=== PATIENT | female | born 1950 | race Caucasian/White ===

== ENCOUNTER 2017-08-21 20:40 | Inpatient (IN) | payer MEDICARE ==
[2017-08-21 20:30] VITALS: BP 144/84
--- NOTE | 2017-08-21 20:30 | NUR ---
PT ARRIVED ON UNIT VIA STRETCHER, PT IS ALERT AND ORIENTED, ON 2L NC WITH 98% O2 SAT. LUNGS CLEAR IN B/L UPPER LOBES, DIMINISHED IN B/L LOWER LOBES, S1S2, CM-NSR, PATENT LEFT A/C PIV..S/L...ABDOMEN IS SOFT AND ROUND WITH ACTIVE BS, ALL PPP, VSS, CALL LIGHT IN REACH
[2017-08-21 21:00] VITALS: BP 138/94
[2017-08-21 21:02] VITALS: BP 144/84; BMI 16.0
[2017-08-21 22:00] VITALS: BP 144/84; BP 153/89
--- NOTE | 2017-08-21 22:10 | NUR ---
UPDATE GIVEN TO DR. DENISE OVER PHONE, NEW ORDERS RECIEVED,
[2017-08-21 23:00] VITALS: BP 150/86
--- NOTE | 2017-08-21 23:00 | NUR ---
REASSESSMENT COMPLETE, NO CHANGES NOTED, WILL CON'T TO MONITOR
[2017-08-21 23:14] VITALS: BP 144/84
[2017-08-22] VITALS (30 sets, daily range): BP systolic 99–159; BP diastolic 60–101; BMI 16.4
--- NOTE | 2017-08-22 01:04 | NUR ---
PT RESTING AT THIS TIME, NO NEEDS NOTED, WILL CON'T TO MONITOR
--- NOTE | 2017-08-22 03:30 | NUR ---
REASSESSMENT COMPLETE, NO CHANGES NOTED, PT RESTING AT THIS TIME, DENIES ANY NEEDS OR WANTS, VSS, CALL LIGHT IN REACH
[2017-08-22 04:19] LABS: BASOPHILS 0.1 % (0-2); EOSINOPHILS 0.1 % (0-7); HEMATOCRIT 42.7 % (36.0-48.0); HEMOGLOBIN 14.2 g/dL (12-16); IMMATURE GRANULOCYTES 0.3 % (0-5); LYMPHOCYTES 19.8 % (15-50); MCH 31.4 pg (26.0-34.0); MCHC 33.3 g/dL (31.0-37.0); MCV 94.5 fL (80.0-100.0); MEAN PLATELET VOLUME 9.8 fL (7.4-10.4); MONOCYTES 7.6 % (2-11); NEUTROPHILS 72.1 % (40-80); PLATELET COUNT 268 10x3/uL (130-400); RBC 4.52 10x6/uL (4.00-5.40); RDW 13.6 % (11.5-14.5); WBC 14.6 10x3/uL (4.8-10.8)
[2017-08-22 04:43] LABS: ALBUMIN 3.3 g/dL (3.4-5.0); ALKALINE PHOSPHATASE 133 U/L (46-116); ALT (SGPT) 93 U/L (10-68); CALC OSMOLALITY 288 mosm/kg (275-300); CALCIUM 9.1 mg/dL (8.5-10.1); CARBON DIOXIDE 32.4 mmol/L (21.0-32.0); CHLORIDE - SERUM 106 mmol/L (98-107); CREATININE - SERUM 0.8 mg/dL (0.6-1.3); GLUCOSE 112 mg/dL (74-106); POTASSIUM - SERUM 4.5 mmol/L (3.5-5.1); PROTEIN - SERUM 6.9 g/dL (6.4-8.2); SODIUM 143 mmol/L (136-145); UREA NITROGEN 22 mg/dL (7-18); eGFR NON AFRICAN AMERICAN 76 mL/min (90-120)
--- NOTE | 2017-08-22 05:00 | NUR ---
PT AWAKE AT THIS TIME, DENIES ANY NEEDS OR WANTS, WILL CON'T TO MONITOR
--- NOTE | 2017-08-22 06:36 | NUR ---
CONSULT CALLED TO DR. MICHELLE, NO NEW ORDERS RECIEVED,
--- NOTE | 2017-08-22 07:00 | NUR ---
REPORT RECEIVED FROM OFF GOING NURSE. PT IN BED. A&OX4. ON O2 AT 2L VIA NC. CHEST TUBE IN LEFT SIDE OF CHEST. BLOODY DRAINAGE NOTED. CHEST TUBE BUBBLING. ABSENT LUNG SOUNDS IN THE LEFT SIDE AND CLEAR ON THE RIGHT WITH DEMINISHED RLL. IV IN LEFT AC KVO WITH DILAUDID TRUCK LOADER OVERHEAD CRANE PUMP. DENIES PAIN AT THIS TIME. NO S/SX OF DISTRESS/DISCOMFORT NOTED. CALL LIGHT IN REACH. WILL CONT POC
--- NOTE | 2017-08-22 08:40 | NUR ---
LEFT FOR CT OF CHE[place] VIA BED WITH O2 TANK.
[2017-08-22] MEDS ORDERED: BAYER CHEWABLE81 MG PO (09:43)
[2017-08-22] MEDS ORDERED: LOVASTATIN20 MG PO (09:43)
[2017-08-22] MEDS ORDERED: [UNRECOGNIZED DRUG - OTHER] PO (09:43)
[2017-08-22] MEDS ORDERED: TOPROL XL50 MG PO (09:45)
[2017-08-22] MEDS ORDERED: COLACE100 MG PO (09:46)
[2017-08-22] MEDS ORDERED: SYNTHROID75 MCG PO (09:46)
[2017-08-22] MEDS ORDERED: BENADRYL25 MG PO (09:47)
[2017-08-22] MEDS ORDERED: SPIRIVA18 MCG INH (09:48)
[2017-08-22] MEDS ORDERED: PROAIR HFA8.5 GM INH (09:48)
[2017-08-22] MEDS ORDERED: SYMBICORT 16010.2 GM INH (09:48)
[2017-08-22] MEDS ORDERED: DOXYCYCLINE HY100 M2 PO (09:49)
[2017-08-22] MEDS ORDERED: PREDNISONE20 MG PO (09:50)
--- NOTE | 2017-08-22 09:50 | NUR ---
FAMILY BROUGHT IN MEDICATION LIST. MED LIST UPDATED AND REVIEWED.
--- NOTE | 2017-08-22 10:21 | NUR ---
DR MICHELLE REVIEWED CHEST CT AND XRAY. CHEST TUBE NO IN CORRECT PLACE. DR FAIRCHILD PAGED AND NOTIFIED. PER DR FAIRCHILD, PLANS TO CORRECT PLACEMENT OF CHEST TUBE.
--- NOTE | 2017-08-22 11:59 | NUR ---
NO CHANGES FROM AM ASSESSMENT. REMAINS NPO. DENIES NEEDS. 0 S/SX OF DISTRESS/DISCOMFORT NOTED. CALL LIGHT IN REACH. WILL CONT POC
--- NOTE | 2017-08-22 14:14 | NUR ---
PREOP MEDICATION GIVEN. LEFT WITH OR STAFF FOR LEFT CHEST TUBE REPLACEMENT. PT BREATHING NORMALLY AND UNLABORED. 0 S/SX OF DISTRESS/DISCOMFORT NOTED.
--- NOTE | 2017-08-22 15:00 | NUR ---
BACK FROM SURGERY. PT ALERT AND ORIENTED. DENIES PAIN. NEW CHEST TUBE INSERTED. CHEST TUBE CONNECTIONS SECURE AND BUBBLES NOTED IN CHAMBER. SCANT AMOUNT OF BLOODY DRAINAGE NOTED. DENIES PAIN AT THIS TIME. CALL LIGHT AND BETA TESTER PUMP IN HAND WILL CONT POC
--- NOTE | 2017-08-22 17:00 | NUR ---
VSS. BREATHING NORMAL AND UNLABORED. DENIES PAIN CALL LIGHT IN REACH. WILL CONT POC
--- NOTE | 2017-08-22 18:37 | NUR ---
MD KANG FOR REGULAR DIET. FOOD AND PO FLUIDS GIVEN. NO DYSPAGIA NOTED.
--- NOTE | 2017-08-22 19:15 | NUR ---
REPORT REC'D, PATIENT CARE ASSUMED. ASSESSMENT COMPLETED PER FLOW SHEETS. PT AWAKE, ALERT AND ORIENTED X4, C/O DISCOMFORT AT INCISIION SITE. SENIOR TECHNICAL PROGRAM MANAGER PUMP IN USE PRN, SR ON CM WITH HR AT 92. LUNG SOUNDS WHEEZING TO ULB WITH DIMINISHED TO LLB, UNLABORED. LEFT CHEST, CHEST TUBE INTACT TO SUCTION WITH SCANT BLOODY DRAINAGE TO TUBE. LEFT IC PVI INTACT, DRY AND CLEAN, INFUSING IV FLUID PER ORDER. PPP. CALL LIGHT IN REACH. CONT TO MONITOR.
--- NOTE | 2017-08-22 21:00 | NUR ---
FAMILY HERE AT BEDSIDE. UPDATED AND QUESTIONS ANSWERED. CPOC
--- NOTE | 2017-08-22 23:00 | NUR ---
REASSESSMENT COMPLETED. SEE FLOW SHEETS FOR ALL FINDINGS. PT CONT TO USE [employer] RETAILER SALES CONSULTANT PUMP PRN FOR DISCOMFORT. NO ACUTE SIGNS OF DISTRESS NOTED. VSS. CALL LIGHT IN REACH. CPOC.
[2017-08-23] VITALS (14 sets, daily range): BP systolic 106–133; BP diastolic 63–89
--- NOTE | 2017-08-23 01:00 | NUR ---
ASSISTED TO BEDPAN. VOIDS WITHOUT DIFFIC. TIMBO CARE PROVIDED. PADS CHANGED. REPOSITIIONED FOR COFMORT. PILLOWS IN USE FOR SUPPORT. CALL LIGHT IN REACH. CONT TO MONITOR.
[2017-08-23 04:30] LABS: BASOPHILS 0.2 % (0-2); HEMATOCRIT 41.4 % (36.0-48.0); HEMOGLOBIN 13.4 g/dL (12-16); IMMATURE GRANULOCYTES 0.2 % (0-5); MCH 30.9 pg (26.0-34.0); MCHC 32.4 g/dL (31.0-37.0); MCV 95.6 fL (80.0-100.0); MONOCYTES 8.9 % (2-11); NEUTROPHILS 71.7 % (40-80); PLATELET COUNT 215 10x3/uL (130-400); RBC 4.33 10x6/uL (4.00-5.40); RDW 13.5 % (11.5-14.5)
[2017-08-23 04:32] LABS: WBC 10.5 10x3/uL (4.8-10.8)
[2017-08-23 04:37] LABS: CALC OSMOLALITY 284 mosm/kg (275-300); CALCIUM 8.7 mg/dL (8.5-10.1); CARBON DIOXIDE 32.9 mmol/L (21.0-32.0); CHLORIDE - SERUM 104 mmol/L (98-107); CREATININE - SERUM 0.7 mg/dL (0.6-1.3); GLUCOSE 108 mg/dL (74-106); POTASSIUM - SERUM 4.4 mmol/L (3.5-5.1); SODIUM 141 mmol/L (136-145); UREA NITROGEN 21 mg/dL (7-18); eGFR NON AFRICAN AMERICAN 89 mL/min (90-120)
--- NOTE | 2017-08-23 07:52 | NUR ---
REPORT RECEIVED FROM OFF GOING NURSE. PT ALERT AND ORIENTED X4. O2 AT 2L VIA NC. PT TAKING SHALLOW BREATHS. CLEAR RUL RML WITH AND EXPITORY WHEEZING NOTED TO RLL. ABSENT LUNG SOUNDS TO LEFT LUNG. CHEST TUBE TO LEFT SIDE OF CHEST. DRESSING C/D/I. CONTINUES SUTION AND BUBBLES NOTED. 20ML OF BLOODY DRAINAGE NOTED IN COLLECTION CHAMBER. LEFT AC IV SL. DRESSING C/D/I. NO S/SX OF INFILTRATION NOTED. DENIES PAIN. CALL LIGHT IN REACH. WILL CONT POC
--- NOTE | 2017-08-23 11:32 | NUR ---
METOPROLOL GIVEN PER MELBA BEFORE PT LEFT UNIT. DR HATCH PAGED FOR UPDATING HOME MED LIST.
--- NOTE | 2017-08-23 12:00 | NUR ---
PT RECIEVED TO ROOM FROM ICU. RR EVEN AND UNLABORED. PT ON 2L NC. CHEST TUBE DRAINING SMALL AMT OF BLOODY DRAINAGE. CHEST TUBE DRESSING CITE CDI. CHEST TUBE APPLIED TO 20MM OF SUCTION. FAMILY AT BEDSIDE. PT DENIES NEEDS AT THIS TIME, REPORTS A "LITTLE BIT" OF PAIN. PT HAS INSTRUMENT LENS GRINDER APPRENTICE PUMP WITH DILUDID.
--- NOTE | 2017-08-23 12:02 | NUR ---
REPORT CALLED INTO SUNG CHATTERJEE ON MED 2. BELONGS ALL ACCOUNTED FOR. PT LEFT VIA BED AND HANDED OFF TO MED 2
--- NOTE | 2017-08-23 18:30 | NUR ---
PT RESTING QUIETLY, RR EVEN AND UNLABORED. PT DENIES NEEDS AT THIS TIME. WILL GIVE REPORT ON PT CONDITION FOR THE DAY.
--- NOTE | 2017-08-23 19:32 | NUR ---
PT IN BED RESTING. EVEN AND UNLABORED RESPIRATIONS NOTED. WILL CONTINUE TO MONITOR.
--- NOTE | 2017-08-24 00:20 | NUR ---
PT RESTING WITH EYES CLOSED. RESP EVEN AND REGULAR. CT RESEVOIR AT BEDSIDE. CALL LIGHT WITHIN REACH.
[2017-08-24 04:00] VITALS: BP 121/60
[2017-08-24 06:25] LABS: BASOPHILS 0.1 % (0-2); EOSINOPHILS 1.3 % (0-7); HEMATOCRIT 39.5 % (36.0-48.0); IMMATURE GRANULOCYTES 0.2 % (0-5); LYMPHOCYTES 20.5 % (15-50); MCH 31.2 pg (26.0-34.0); MCHC 32.9 g/dL (31.0-37.0); MCV 94.7 fL (80.0-100.0); MEAN PLATELET VOLUME 9.7 fL (7.4-10.4); MONOCYTES 8.6 % (2-11); NEUTROPHILS 69.3 % (40-80); PLATELET COUNT 197 10x3/uL (130-400); RBC 4.17 10x6/uL (4.00-5.40); RDW 13.3 % (11.5-14.5)
[2017-08-24 06:36] LABS: CALC OSMOLALITY 272 mosm/kg (275-300); CALCIUM 8.5 mg/dL (8.5-10.1); CARBON DIOXIDE 31.7 mmol/L (21.0-32.0); CHLORIDE - SERUM 102 mmol/L (98-107); CREATININE - SERUM 0.6 mg/dL (0.6-1.3); GLUCOSE 120 mg/dL (74-106); POTASSIUM - SERUM 3.6 mmol/L (3.5-5.1); SODIUM 136 mmol/L (136-145); UREA NITROGEN 13 mg/dL (7-18); eGFR NON AFRICAN AMERICAN > 90 mL/min (90-120)
--- NOTE | 2017-08-24 07:40 | NUR ---
AM ROUNDS - PT IN BED AND APPEARS TO BE SLEEPING WITH EQUAL AND NON LABORED BREATHING. CHEST TUBE DRAINING. IV TO LEFT AC, NS AT KVO. DILAUDID BRUSH CLEARER SURVEYING INFUSING. SCD ON AT THIS TIME. YELLOW BAND ON. CALL MENDOZA IN REACH. SIDE RAILS UP X2. BED AT LOWEST POSITION. WILL CONTINEU TO MONITOR
[2017-08-24 08:10] VITALS: BP 117/63
[2017-08-24 12:32] VITALS: BP 100/55
--- NOTE | 2017-08-24 15:12 | NUR ---
PT IN BED WITH NO NEEDS AT THIS TIME. WILL CONTINUE TO MONITOR
[2017-08-24 15:39] VITALS: BP 99/48
--- NOTE | 2017-08-24 18:36 | NUR ---
NO NS BOTTLES ON THE FLOOR. CALLED HOUSE SUP TO OBTAIN BOTTLED NS. LAUREN SAID PASS THE ORDER TO THE NIGHT NURSE AND [facility] DO[facility] NOT RECIEVE THE BOTTLE OF NS FOR THE CHEST TUBE IN ABOUT 1 HRS TO CALL HER BACK. WILL CONTINUE TO [place].
--- NOTE | 2017-08-24 19:36 | NUR ---
PT IN BED. SURROUNDED BY FAMILY AT BEDSIDE. DENIES NEEDS AT THIS TIME. WILL CONTINUE TO MONITOR.
[2017-08-24 20:32] VITALS: BP 111/55
[2017-08-25 01:18] VITALS: BP 103/52
[2017-08-25 05:55] VITALS: BP 103/56
[2017-08-25 06:09] LABS: BASOPHILS 0.1 % (0-2); EOSINOPHILS 1.5 % (0-7); HEMATOCRIT 35.8 % (36.0-48.0); HEMOGLOBIN 11.8 g/dL (12-16); IMMATURE GRANULOCYTES 0.3 % (0-5); LYMPHOCYTES 22.7 % (15-50); MCH 31.1 pg (26.0-34.0); MCV 94.2 fL (80.0-100.0); MEAN PLATELET VOLUME 9.6 fL (7.4-10.4); MONOCYTES 8.2 % (2-11); NEUTROPHILS 67.2 % (40-80); PLATELET COUNT 223 10x3/uL (130-400); RDW 13.3 % (11.5-14.5); WBC 7.4 10x3/uL (4.8-10.8)
[2017-08-25 06:28] LABS: CALC OSMOLALITY 276 mosm/kg (275-300); CALCIUM 8.1 mg/dL (8.5-10.1); CARBON DIOXIDE 29.8 mmol/L (21.0-32.0); CHLORIDE - SERUM 105 mmol/L (98-107); CREATININE - SERUM 0.5 mg/dL (0.6-1.3); GLUCOSE 115 mg/dL (74-106); POTASSIUM - SERUM 3.7 mmol/L (3.5-5.1); SODIUM 138 mmol/L (136-145); UREA NITROGEN 12 mg/dL (7-18); eGFR NON AFRICAN AMERICAN > 90 mL/min (90-120)
[2017-08-25 08:05] VITALS: BP 114/75
--- NOTE | 2017-08-25 08:21 | NUR ---
PT AOX4 RESP EVEN AND NONLABORED IV TO LEFT AC PATENT AND INTACT AT THIS TIME SRX2 BED AT LOWEST SETTING CALL LIGHT WITHIN REACH WILL CONTINUE TO MONITOR
[2017-08-25 15:09] VITALS: BP 127/67
[2017-08-25 20:35] VITALS: BP 116/70
--- NOTE | 2017-08-25 23:35 | NUR ---
PT RESTING WITH EYES CLOSED. NO DISTRESS. PT SEEN EARLIER BY DR DENISE AND HE INFORMED HER THAT SHE STILL HAS A LEAK AND IF IT DOES NOT RESOLVE, THEN SHE WILL PROBABLY HAVE SURGERY SATURDAY. DR DENISE ASSESSED PT DURING HIS VISIT. LEFT SIDE CHEST TUBE IN PLACE.
[2017-08-26 00:08] VITALS: BP 104/59
--- NOTE | 2017-08-26 02:45 | NUR ---
PT ASLEEP. IVF INFUSING AT KVO/DILAUDID CHIEF PHARMACIST FOR PAIN CONTROL. CALL LIGHT IN REACH. CPOC.
--- NOTE | 2017-08-26 03:13 | NUR ---
IV ABT UP AND INFUSING. PT RESTING WITH NONLABORED RESPIRATIONS. CHEST TUBE IN PLACE TO LEFT SIDE. CPOC.
[2017-08-26 04:37] VITALS: BP 95/55
[2017-08-26 05:11] LABS: BASOPHILS 0.2 % (0-2); EOSINOPHILS 2.4 % (0-7); HEMATOCRIT 36.1 % (36.0-48.0); HEMOGLOBIN 11.8 g/dL (12-16); IMMATURE GRANULOCYTES 0.1 % (0-5); MCH 30.8 pg (26.0-34.0); MCHC 32.7 g/dL (31.0-37.0); MCV 94.3 fL (80.0-100.0); MEAN PLATELET VOLUME 9.2 fL (7.4-10.4); MONOCYTES 7.7 % (2-11); NEUTROPHILS 69.6 % (40-80); PLATELET COUNT 239 10x3/uL (130-400); RBC 3.83 10x6/uL (4.00-5.40); RDW 13.4 % (11.5-14.5); WBC 8.1 10x3/uL (4.8-10.8)
[2017-08-26 05:16] LABS: CALC OSMOLALITY 281 mosm/kg (275-300); CALCIUM 8.6 mg/dL (8.5-10.1); CARBON DIOXIDE 31.1 mmol/L (21.0-32.0); CHLORIDE - SERUM 104 mmol/L (98-107); CREATININE - SERUM 0.5 mg/dL (0.6-1.3); GLUCOSE 140 mg/dL (74-106); SODIUM 140 mmol/L (136-145); UREA NITROGEN 14 mg/dL (7-18); eGFR NON AFRICAN AMERICAN > 90 mL/min (90-120)
--- NOTE | 2017-08-26 07:45 | NUR ---
RECIEVED REPORT ON PATIENT, PATIENT IS RESTING AT THIS TIME, NAD NOTED. RESPIRATORY AT BEDSIDE GIVING BREATHING TREATMENT. PATIENT HAS A L AC IV WITH NS INFUSING AT 15ML/HR AND A DILAUDID FIRST CRUSHER. PATIENT IS SR ON MONITOR WITH A RATE OF 87. PATIENT HAS A WATER SEAL CHEST TUBE ON L SIDE. NAD NOTED AT THIS TIME. WILL CONT TO MONITOR PATIENT, BED LOW AND LOCKED. CALL LIGHT IN REACH. CPOC
[2017-08-26 08:00] VITALS: BP 108/65
--- NOTE | 2017-08-26 09:00 | NUR ---
MORNING MEDICATIONS GIVEN PER ORDER. DENIES ANY NEEDS. CPOC
[2017-08-26 12:00] VITALS: BP 111/68
--- NOTE | 2017-08-26 12:11 | NUR ---
SECOND IV STARTED IN L WRIST, 22G. IV INFUSING WITH NS AT 15ML/HR AND DILUADID JOURNEYMAN MILLWRIGHT. L AC IV SL. CPOC
--- NOTE | 2017-08-26 15:00 | NUR ---
PATIENT DILUADID OIL RAG WASHER DC. DR DENISE NOTIFIED. ORDERED NORCO 5MG 1-2TABS q4HOUR PRN PAIN. CPOC
[2017-08-26 16:00] VITALS: BP 130/78
--- NOTE | 2017-08-26 17:49 | NUR ---
PATIENT SITTING UP IN BED EATING DINNER. FAMILY AT BEDSIDE. PATIENT DENIES ANY NEEDS. STATES PAIN IS OKAY AT THIS TIME. WILL CONT TO MONITOR
--- NOTE | 2017-08-26 18:42 | NUR ---
PATIENT WATCHING TV, DENIES ANY NEEDS AT THIS TIME. CPOC
[2017-08-26 19:00] VITALS: BP 116/70
--- NOTE | 2017-08-26 19:35 | NUR ---
SHIFT ASSESSMENT COMPLETE. PT IS A&O X4 AND HAS COMPLAINTS OF ABD PAIN. SHE STATES THAT SHE HASN'T HAD A BM SINCE SATURDAY AND SHE DISCUSSED OPTIONS WITH THE DOCTOR ABOUT STOOL SOFTNERS, LAXITIVE, ETC. WILL CHECK INTO THAT DISCUSSION. NC @ 2 L/MIN, EVEN AND UNLABORED RESPIRATIONS. DIMINISHED LUNG SOUNDS THROUGHOUT ALL LOBES WELL SOME EXPIRATORY WHEEZES. S1S2 AUDIBLE, HR 100, SINUS RHYTHM VIA TELEMERTY. RADIAL AND PEDAL PULSES PALP, EQUAL, STRONG. L SIDE OF CHEST HAS CHEST TUBE DRESSING, CDI WITH NO DRAINAGE NOTED. WATER SEAL SUCTION, DARK RED BLOOD NOTED IN THE CHAMBER. REPOSITIONED FOR COMFORT. REFILLED REFRESHMENTS. NO FURTHER REQUESTS AT THIS TIME. CALL LIGHT IN REACH. BED IN LOWEST POSITION. WILL CONT WITH POC.
--- NOTE | 2017-08-26 23:30 | NUR ---
PT RESTING PEACEFULLY ON HER BACK WITH NO SIGNS OF ACUTE DISTRESS NOTED. WILL CONT WITH POC.
[2017-08-27] VITALS: BP 107/47
--- NOTE | 2017-08-27 02:51 | NUR ---
CHANGED IV TUBING, SWAB CAPPED, LABELED. NO REQUESTS AT THIS TIME. WILL CONT WITH POC.
[2017-08-27 04:32] VITALS: BP 100/52
--- NOTE | 2017-08-27 05:00 | NUR ---
PT RESTING PEACEFULLY WITH NO SIGNS OF ACUTE DISTRESS NOTED. WILL CONT WITH POC.
[2017-08-27 05:38] LABS: BASOPHILS 0.2 % (0-2); EOSINOPHILS 2.5 % (0-7); HEMATOCRIT 38.3 % (36.0-48.0); HEMOGLOBIN 12.3 g/dL (12-16); IMMATURE GRANULOCYTES 0.2 % (0-5); LYMPHOCYTES 23.6 % (15-50); MCHC 32.1 g/dL (31.0-37.0); MEAN PLATELET VOLUME 9.4 fL (7.4-10.4); MONOCYTES 8.9 % (2-11); NEUTROPHILS 64.6 % (40-80); PLATELET COUNT 260 10x3/uL (130-400); RBC 3.97 10x6/uL (4.00-5.40); RDW 13.4 % (11.5-14.5); WBC 8.3 10x3/uL (4.8-10.8)
[2017-08-27 05:42] LABS: MCV 96.5 fL (80.0-100.0)
[2017-08-27 06:00] LABS: CALC OSMOLALITY 279 mosm/kg (275-300); CALCIUM 8.7 mg/dL (8.5-10.1); CARBON DIOXIDE 32.8 mmol/L (21.0-32.0); CHLORIDE - SERUM 104 mmol/L (98-107); CREATININE - SERUM 0.6 mg/dL (0.6-1.3); GLUCOSE 113 mg/dL (74-106); SODIUM 139 mmol/L (136-145); UREA NITROGEN 16 mg/dL (7-18); eGFR NON AFRICAN AMERICAN > 90 mL/min (90-120)
[2017-08-27 06:10] LABS: POTASSIUM - SERUM 4.7 mmol/L (3.5-5.1)
--- NOTE | 2017-08-27 06:14 | NUR ---
AM MEDS ADMINISTERED. ASSISTED PT ON BEDPAN. NO FURTHER REQUESTS AT THIS TIME. WILL CONT WITH POC.
--- NOTE | 2017-08-27 07:24 | NUR ---
RECIEVED REPORT ON PATIENT, PATIENT IS ALERT AND ORIENTED. PATIENT HAS A WATERSEAL CHEST TUBE TO THE L SIDE. PATIENT ON 2L/MIN VIA NC. NAD NOTED AT THIS TIME. PATIENT HAS A L AC IV THAT IS SL. AND A L WRIST IV WITH NS INFUSING AT 15ML/HR. PATIENT DENIES ANY NEEDS AT THIS TIME. WILL CONT TO MONITOR PATIENT. CPOC
[2017-08-27 08:48] VITALS: BP 123/67
--- NOTE | 2017-08-27 11:50 | NUR ---
PATIENT RESTING IN BED, FAMILY AT BEDSIDE. PATIENT DENIES ANY NEEDS. CPOC
[2017-08-27 12:04] VITALS: BP 110/66
--- NOTE | 2017-08-27 13:00 | NUR ---
PATIENT SITTING UP IN BED, DENIES ANY PAIN AT THIS TIME. FAMILY AT BEDSIDE. BED LOW AND LOCKED. CPOC
--- NOTE | 2017-08-27 14:32 | NUR ---
Nutrition Follow Up: Pt stated that her appetite is okay. She gave food preferences - will honor. Pt agreed to Ensure and prefers strawberry. Pt is eating 75% meal avg on a regular diet. No BM since admit. Wt stable. Meds and labs noted. Rec continue current diet. Will send Ensure with meals. Will continue to provide selective menus and honor food preferences. RD following.
--- NOTE | 2017-08-27 15:32 | NUR ---
PATIENT SITTING UP IN BED, FAMILY AT BEDSIDE. PATIENT DENIES ANY NEEDS AT THIS TIME. DENIES PAIN. WILL CONT TO MONITOR PATIENT, CPOC
[2017-08-27 16:17] VITALS: BP 109/63
--- NOTE | 2017-08-27 17:19 | NUR ---
DR DENISE AT BEDSIDE, AND HOOKED PATIENT'S CHEST TUBE BACK UP TO LOW CONT SUCTION. CPOC
--- NOTE | 2017-08-27 17:51 | NUR ---
Patient Name: MARSHALL SANCHES Admission Status: Elective Accout number: [id number] Admission Date: 08-21-2017 : 1950 Admission Diagnosis:OTHER PNEUMOTHORAX Attending: SALINAS DENISE Current LOS: 6 Anticipated DC Date: Planned Disposition: Home Primary Insurance: [facility] Discharge Planning Comments: * Is the patient Alert and Oriented? Yes 0 * How many steps to enter\exit or inside your home? RAMP 0 * PCP DR. MCCRAY 0 * Pharmacy [facility] OR MAIL ORDER 0 * Preadmission Environment Home with Family 0 * ADLs Partial Dependent 0 * Partial ADLs (Assistance needed) Bathing 0 * Equipment Rolling Walker Wheelchair 0 * Other Equipment NO MEDICAL EQUIPMENT PROVIDER PREFERENCE 0 * List name and contact numbers for known caregivers / representatives who currently or will assist patient after discharge: JOLENE CURTIS DTR, * Community resources currently utilized None 0 * Please name any agencies selected above. NONE 0 * Additional services required to return to the preadmission environment? No 0 * Can the patient safely return to the preadmission environment? Yes 0 * Has this patient been hospitalized within the prior 30 days at any hospital? No 0 CM MET WITH PT AND DAUGHTER IN ROOM TO DISCUSS DISCHARGE PLANNING AND NEEDS. PT REPORTS LIVING AT HOME INDEPENDENTLY FOR THE MOST PART WITH HER ADULT DAUGHTER. PT HAS ROLLING WALKER AND WHEELCHAIR WITH NO MEDICAL EQUIPMENT PROVIDER PREFERENCE. PT HAS NO OUTSIDE SERVICES ASSISTING IN THE HOME. CM DISCUSSED AVAILABILITY OF HOME HEALTH, REHAB SERVICES AND MEDICAL EQUIPMENT. PT DENIES DISCHARGE NEEDS, REPORTS HER DAUGHTER WILL PICK HER UP FOR DISCHARGE HOME. CM TO FOLLOW AND ASSIST IF NEEDED. Architecture Faculty Member: Flakito Cardona
--- NOTE | 2017-08-27 18:02 | NUR ---
PATIENT EATING DINNER. DENIES ANY NEEDS. CPOC
--- NOTE | 2017-08-27 19:32 | NUR ---
PT IN BED. DENIES NEEDS AT THIS TIME. WILL CONTINUE TO MONITOR.
[2017-08-27 21:18] VITALS: BP 119/62
--- NOTE | 2017-08-28 02:20 | NUR ---
PT RESTING COMFORTABLY, CONTINUE TO MONITOR CLOSELY. BED LOW, CALL LIGHT IN REACH, SIDE RAILS X 2, HOB 25-30 DEGREES.
[2017-08-28 06:47] LABS: BASOPHILS 0.3 % (0-2); EOSINOPHILS 1.8 % (0-7); HEMATOCRIT 37.7 % (36.0-48.0); HEMOGLOBIN 12.3 g/dL (12-16); IMMATURE GRANULOCYTES 0.3 % (0-5); LYMPHOCYTES 29.2 % (15-50); MCH 30.8 pg (26.0-34.0); MCHC 32.6 g/dL (31.0-37.0); MEAN PLATELET VOLUME 8.8 fL (7.4-10.4); MONOCYTES 8.5 % (2-11); NEUTROPHILS 59.9 % (40-80); PLATELET COUNT 239 10x3/uL (130-400); RBC 3.99 10x6/uL (4.00-5.40); RDW 13.3 % (11.5-14.5); WBC 7.7 10x3/uL (4.8-10.8)
[2017-08-28 06:56] LABS: MCV 94.5 fL (80.0-100.0)
[2017-08-28 07:16] LABS: CALC OSMOLALITY 277 mosm/kg (275-300); CALCIUM 8.6 mg/dL (8.5-10.1); CARBON DIOXIDE 30.8 mmol/L (21.0-32.0); CHLORIDE - SERUM 100 mmol/L (98-107); CREATININE - SERUM 0.5 mg/dL (0.6-1.3); GLUCOSE 119 mg/dL (74-106); MAGNESIUM - SERUM 1.9 mg/dL (1.8-2.4); PHOSPHOROUS 4.1 mg/dL (2.5-4.9); POTASSIUM - SERUM 4.1 mmol/L (3.5-5.1); SODIUM 138 mmol/L (136-145); UREA NITROGEN 16 mg/dL (7-18); eGFR NON AFRICAN AMERICAN > 90 mL/min (90-120)
--- NOTE | 2017-08-28 07:44 | NUR ---
AM ROUNDS - PT IN BED AND AWAKE AT THIS TIME. SCDS ARE ON. PT HAS A YELLOW BAND ON. MONITOR SHOWING SR, HR 91. O2 AT 2L VIA NC. IV TO LEFT AC, SL. LEFT WRIST, NS AT KVO. LEFT CHEST TUBE TO SUCTION. BED AT LOWEST POSITION. CALL MENDOZA IN USE/REACH, SIDE RAILS UP X2. WILL CONTINUE TO MONTIOR
[2017-08-28 08:15] VITALS: BP 119/74
[2017-08-28 12:04] VITALS: BP 105/72
[2017-08-28 16:54] VITALS: BP 132/80
--- NOTE | 2017-08-28 18:30 | NUR ---
PT IN BED WITH FAMILY AT THIS TIME. WILL CONTINUE TO MONITOR
[2017-08-28 19:00] VITALS: BP 98/55
--- NOTE | 2017-08-28 19:27 | NUR ---
IN BED RESTING, A&O. IV TO LEFT WRIST WITH NS INFUSING AT KVO. SITE CLEAN AND DRY. LEFT CHEST TUBE TO LIS. PT DENIES NEEDS, BED LOW, CL IN REACH.
[2017-08-29] VITALS: BP 102/46
--- NOTE | 2017-08-29 00:55 | NUR ---
GUNITE MIXER AT BEDSIDE TO OBTAIN VITALS, CALL LIGHT IN REACH. WILL CONTINUE WITH PLAN OF CARE.
[2017-08-29 04:00] VITALS: BP 108/69
--- NOTE | 2017-08-29 05:08 | NUR ---
RESTING WITH EYES CLOSED, RESPERATIONS EVEN, NO S/S DISTRESS NOTED.
--- NOTE | 2017-08-29 07:47 | NUR ---
AM ROUNDING- RECIEVED REPORT FROM MATE SHIP NURSE DANIEL. PT IS CURRENTLY LAYING IN BED ON BACK WITH EYES OPEN RESTING RECIEVING A BREATHING TX. ON 02 AT 2L VIA NC. ON MONITOR SHOWING SR, HR 90. IV SEEN TO LEFT AC THAT IS CURRENTLY SALINE LOCKED. IV SEEN TO LEFT WRIST WITH NS RUNNING AT KVO. CHEST TUBE SEEN TO LEFT CHEST AREA WITH SEROSANGINOUS FLUID SEEN IN CHEST TUBE. MARKED FROM PRIOR NURSE NO ADDIATIONAL FLUID SEEN IN CHEST TUBE. NO NEED AT THIS CURRENT TIME. WILL CONTINUE TO MONITOR AND CONTINUE WITH PLAN OF CARE.
--- NOTE | 2017-08-29 07:55 | NUR ---
THIS NURSE ASSISTED PT ON BEDPAN. JACQUI MAO AWARE THAT PT IS ON BEDPAN.
[2017-08-29 08:00] VITALS: BP 120/66
--- NOTE | 2017-08-29 11:08 | NUR ---
WAS ASKED TO COME INTO THE PATIENTS ROOM BY THE DAUGHTER. UPON ENTRY TO THE ROOM, THE DAUGHTER ASKED IF I COULD START FILLING OUT HER DISABILITY PAPERWORK SO THAT THE PATIENT COULD GO FROM REGULAR SOCIAL SECURITY TO SOCIAL SECURITY DISABILITY. I EXPLAINED THAT TYPICALLY YOU HAVE TO GO TO THE SOCIAL SECURITY OFFICE AND GET THAT PAPERWORK AND HAVE YOUR PCP FILL IT OUT. EXPLAINED THAT SHE WAS ADMITED TO A MED WINDOWS SYSTEMS ARCHITECT DOCTOR AND THEY USUALLY WILL NOT GET INVOLVED, THEY WILL REFER YOU TO YOUR PCP. THAT IS WHEN THE PATIENT STATED THAT HER PCP (DR. MCCRAY) AND HE WOULD NOT FILL OUT THE PAPERWORK. I ASKED IF SHE WAS ESTABLISHED WITH ANY OTHER DOCTORS, AND SHE SAID SHE HAS A HEART DOCTOR AND A CONCRETE TRUCK DRIVER. I EXPLAINED THAT THEY COULD GET THE PAPERWORK AND SEE IF ONE OF THOSE DOCTORS WILL FILL IT OUT FOR THEM. SHE THEN ASKED, "CAN YOU NOT JUST START IT HERE". I AGAIN EXPLAINED THAT I WAS SURE THAT WE DID NOT KEEP THAT PAPERWORK HERE, BUT I WOULD DOUBLE CHECK WITH THE BUSINESS OFFICE. CALLED AND SPOKE WITH HI IN THE BUSINESS OFFICE AND SHE STATED THAT WE DID NOT DO THAT HERE, THAT THEY WOULD HAVE TO GET WITH THE SOCIAL SECURITY OFFICE FOR THAT PAPERWORK.
[2017-08-29 12:00] VITALS: BP 101/59
--- NOTE | 2017-08-29 13:17 | NUR ---
KAVEH, ICU NURSE HERE [facility] DR. DENISE TO CHANGE OUT WATER SEAL CHEST TUBE CHANGED OUT TO DRY CHEST DRAINAGE SYSTEM WITH 40 CM OF SUCTION.
[2017-08-29 16:00] VITALS: BP 106/59
--- NOTE | 2017-08-29 18:33 | NUR ---
PT IS CURRENTLY SITTING UP IN BED WITH EYES OPEN RESTING. GUEST MEMBER IS AT BEDSIDE. PTS FAMILY IS CONCERNED BECAUSE CASE MANAGEMENT CAME IN AND LEFT COPY OF PTS "MEDICARE RIGHTS". PTS FAMILY MEMBER THINKS IT IS D/C PAPERWORK. I INFORMED PTS FAMILY THAT IT IS NOT D/C PAPERWORK PT DOES NOT HAVE D/C ORDERS. PTS FAMILY APPEARS TO BE RELIEVED. NO NEED AT THIS CURRENT TIME. CHEST TUBE TO LEFT SIDE IS CONNECTED TO DRY SEAL CHAMBER (NO DRAINAGE SEEN) AT LOW INTERMITTENT SUCTION. WILL CONTINUE TO MONITOR AND CONTINUE WITH PLAN OF CARE.
--- NOTE | 2017-08-29 19:09 | NUR ---
1300- DR. DENISE IN ROOM WITH KAVEH, ICU NURSE. DR. DENISE STATES PT WILL NOT BE GOING FOR SURGERY TOMORROW AND MAY POSSIBLY GO SATURDAY.
--- NOTE | 2017-08-29 19:42 | NUR ---
PT ASLEEP. RESPIRATIONS EVEN AND UNLABORED. O2 AT 2L NC. NS INFUSING AT 15ML/HR. DRY SEAL CHEST DRAIN NOTED. NO DRAINAGE SEEN AT THIS TIME. PT IS A MOUTH BREATHER. NO S/S OF DISTRESS. BED LOW, CALL LIGHT IN REACH. WILL CPOC
[2017-08-29 20:00] VITALS: BP 110/75
--- NOTE | 2017-08-29 22:44 | NUR ---
PT RESTING IN BED. O2 AT 2L NC. PT DENIES ANY NEEDS. NO S/S OF DISTRESS. WILL CPOC BED LOW CALL LIGHT IN REACH.
[2017-08-30] VITALS: BP 108/64
[2017-08-30 04:00] VITALS: BP 105/60
--- NOTE | 2017-08-30 06:05 | NUR ---
PT RESTING IN BED. ADDED AN AQUAPAK TO HER O2 FOR HUMIDITY. HER NOSE IS DRY. NO DRAINAGE NOTED IN COLLECTION CHAMBER. PT DENIES ANY NEEDS. SHE SAYS SHE HAS HER COFFEE THAT IS ALL SHE NEEDS. SAYS THEY DID NOT DO XRAYS. PT HAS NO S/S OF DISTRESS. WILL CPOC
[2017-08-30 07:49] LABS: CALC OSMOLALITY 277 mosm/kg (275-300); CALCIUM 8.8 mg/dL (8.5-10.1); CARBON DIOXIDE 31.9 mmol/L (21.0-32.0); CHLORIDE - SERUM 101 mmol/L (98-107); CREATININE - SERUM 0.5 mg/dL (0.6-1.3); GLUCOSE 107 mg/dL (74-106); POTASSIUM - SERUM 4.5 mmol/L (3.5-5.1); SODIUM 138 mmol/L (136-145); UREA NITROGEN 18 mg/dL (7-18); eGFR NON AFRICAN AMERICAN > 90 mL/min (90-120)
--- NOTE | 2017-08-30 07:58 | NUR ---
AM ROUNDING- RECIEVED REPORT FROM FIRE PREVENTION INSPECTOR NURSE YADIRA. PT IS CURRENTLY SITTING UP IN BED RECIEVING BREATHING TX. PT DENIES ANY PAIN AT THIS CURRENT TIME. ON 02 AT 2L VIA HUMIDIFIED O2. ON MONITOR SHOWING SR, HR 93. IV SEEN TO LEFT AC THAT IS CURRENTLY SALINE LOCKED. SECOND IV SEEN TO LEFT WRIST WITH NS RUNNING AT KVO (15CC). CHEST TUBE SEEN TO LEFT SIDE OF CHEST CONNECTED TO DRY WATER SEAL AT LOW INTERMITTENT SUCTION. NO NEED AT THIS CURRENT TIME. WILL CONTINUE TO MONITOR AND CONTINUE WITH PLAN OF CARE.
[2017-08-30 08:00] VITALS: BP 94/49
--- NOTE | 2017-08-30 11:13 | PN ---
PATIENT:MARSHALL SANCHES MEDICAL RECORD: [id number] LOCATION:[address] ADMISSION DATE: 08/21/17 PROGRESS NOTE DATE OF SERVICE: 08/23/2017 Progress Note Addendum CHIEF COMPLAINT: Short of breath. The patient has an indwelling left-sided chest tube. I am managing her left-sided chest tube. It is a 20 cm of water suction. Her pain is controlled. She has baseline labored breathing. There was a small air leak. With regard to her breathing, being supine or exertion aggravates. Nothing alleviates. Symptoms are of moderate severity. This is a progress note addendum. For the typed portion of the progress note, please see the chart. This would include the past medical and surgical history, allergies, social history as well as current medications. REVIEW OF SYSTEMS: No nausea, no vomiting, no fever, no chills. Her review of systems is negative other than as is described above. PHYSICAL EXAMINATION: GENERAL: The patient does appear acutely ill. Also appears chronically ill. The entire physical examination was performed in the presence of a female nurse. VITAL SIGNS: Reviewed. EARS: External ears appear normal. EYES: Extraocular movements are intact. NECK: Trachea is midline. CHEST: No intercostal retractions. PULMONARY: Moderately labored. No stridor. ABDOMEN: No peritonitis with movement. EXTREMITIES: No peripheral cyanosis. INTEGUMENT: No rash, no ulcerations. PSYCHIATRIC: Normal affect. NEUROLOGIC: Answers questions appropriately, somewhat hard of hearing. BACK: Mild thoracic kyphosis is noted. LYMPHATIC: No lymphangitic streaking of the exposed extremities. IMPRESSION: Chronic obstructive pulmonary disease with spontaneous pneumothorax on the left. A chest tube has been replaced. I personally reviewed the chest x-ray images. PLAN: Continued chest tube to suction. TRANSINT:[id number] Voice Confirmation ID: [id number] DOCUMENT ID: [id number] PROGRESS NOTE [id number] SANCHESMARSHALL EUBANKS SALINAS DENISE MD at 1113 CC: [id number] DICTATION DATE: 08/23/17 174 PHYSICAL FITNESS TEACHER: 08/23/17 2345 ADM IN [place] [id number] [place] [address]
--- NOTE | 2017-08-30 11:13 | HP ---
PATIENT: MARSHALL SANCHES MEDICAL RECORD: [id number] ACCOUNT: [id number] LOCATION:[address] : 52 ADMISSION DATE: 08/21/17 HISTORY AND PHYSICAL EXAMINATION ADDENDUM CHIEF COMPLAINT: Chest pain. HISTORY OF PRESENT ILLNESS: The patient presented to the Emergency Room at [place] with chest pain as well as shortness of breath. She has spontaneous pneumothorax on the left. She has had 3 spontaneous pneumothoraces on the right before. She has significant COPD. Breathing aggravates. Nothing alleviates. I reviewed the ER record from [facility] in [place]. The patient initially had a tension pneumothorax and then after placement of chest tube, there was only 5% residual pneumothorax. The chest pain and shortness of breath has been present for 4 days. The tension pneumothorax was found on outpatient CT scan. No nausea, vomiting. She does have cough without fever or chills. This is a history and physical addendum. For the typed portion of the history and physical, please see the chart. This will include the past medical history, surgical history, allergies, social history, family history as well as current medications. REVIEW OF SYSTEMS: As described above, otherwise negative. PHYSICAL EXAMINATION: GENERAL: The patient appears chronically ill. Also appears acutely ill. VITAL SIGNS: Reviewed. The entire physical examination was performed in the presence of a nurse. EARS: External ears appear normal. EYES: Extraocular movements are intact. NECK: Trachea is midline. CHEST: No intercostal retractions. PULMONARY: Mildly labored. No stridor. ABDOMEN: No peritonitis with movement. INTEGUMENT: No rash. BACK: Thoracic kyphosis is present. LYMPHATICS: No lymphangitic streaking of the exposed extremities. IMPRESSION: Spontaneous pneumothorax. PLAN: Admit to the ICU. A chest tube to suction. If she does not have cessation of the air leak within a few days, then operative intervention likely will be necessary. TRANSINT:[id number] Voice Confirmation ID: [id number] DOCUMENT ID: [id number] HISTORY AND PHYSICAL [id number] MARSHALL SANCHES HOWIE, SALINAS MARIE at 1113 CC: [id number] DICTATION DATE: 08/22/17 1041 BIOPSYCHOLOGIST: 08/22/17 1111 ADM IN [facility] [address] [place] [address]
--- NOTE | 2017-08-30 11:13 | OP ---
PATIENT NAME: MARSHALL SANCHES MEDICAL RECORD: [id number] :52 LOCATION:D. D.2136 ADMISSION DATE:08/21/17 SURGEON: HOLLIS DENISE MD DATE OF OPERATION: 08/22/2017 PREOPERATIVE DIAGNOSES: 1. Malpositioned left-sided chest tube. 2. Pneumothorax. POSTOPERATIVE DIAGNOSES: 1. Malpositioned left-sided chest tube. 2. Pneumothorax. PROCEDURE: Placement of a 28-Belarusian chest tube. SURGEON: Hollis Denise MD. PATENT PROSECUTION PARALEGAL: None. BLOOD LOSS: Minimal. ANESTHESIA: Local with IV sedation. COMPLICATIONS: None. Due to the patient's poor respiratory status, we only gave her a little bit of sedation. On today's CT scan, it appears that the chest tube was barely in the left hemithorax. In fact, one of the side holes might actually be outside the hemithorax. OPERATIVE COURSE: The patient was conveyed to the operating room. The left chest was sterilely prepped and draped. The sutures to the chest tube were removed and the chest tube was removed. A larger incision was accomplished after local infiltration. I then bluntly dissected down into the left hemithorax. I advanced a 28-Belarusian chest tube to 18 cm. It was sutured in place. The skin around the chest tube was sutured in place with a horizontal mattress 3-0 Prolene. A sterile dressing was applied and the chest tube was then attached to 20 cm of suction. There was bubbling in the canister indicating a further air leak. TRANSINT:[id number] Voice Confirmation ID: [id number] DOCUMENT ID: [id number] HOLLIS DENISE MD at 1113 CC: [id number] DICTATION DATE: 08/23/17 1311 RICE DRYER MECHANIC: 08/23/17 1432 ADM IN [facility] [address] [place] [address]
--- NOTE | 2017-08-30 11:13 | PN ---
PATIENT:MARSHALL SANCHES MEDICAL RECORD: [id number] LOCATION:D. D.213 ADMISSION DATE: 08/21/17 PROGRESS NOTE DATE OF SERVICE: 08/24/2017 Progress Note Addendum CHIEF COMPLAINT: Better. I have reviewed her chest x-ray images. She still has a small air leak. She seemed to be breathing a little easier. Her pain is controlled. Lying supine and exertion aggravates her shortness of breath. Sitting up supine helps. This is a progress note addendum. For the typed portion of the progress note, please see the chart. This would include the past medical and surgical history, allergies, family history, and current medications. REVIEW OF SYSTEMS: No nausea, no vomiting, no fever, no chills. She is tolerating a regular diet. PHYSICAL EXAMINATION: GENERAL: She appears acutely ill. Also appears chronically ill. VITAL SIGNS: Reviewed. EARS: External ears appear normal. EYES: Extraocular movements are intact. NECK: Trachea is midline. CHEST: No intercostal retractions, moderately labored. ABDOMEN: No peritonitis with movement. EXTREMITIES: No peripheral cyanosis. INTEGUMENT: No rash, no ulcerations. PSYCHIATRIC: Normal affect. NEUROLOGIC: Answers questions appropriately, moves all extremities well. BACK: Mild thoracic kyphosis. LYMPHATIC: No lymphangitic streaking of the exposed extremities. IMPRESSION: Spontaneous left-sided pneumothorax in a patient with severe chronic obstructive pulmonary disease with continued small air leak. PLAN: We will continue to keep the chest tube to 20 cm of water suction. TRANSINT:[id number] Voice Confirmation ID: [id number] DOCUMENT ID: [id number] SALINAS DENISE MD at 1113 CC: [id number] DICTATION DATE: 08/24/17 1829 TELEPHONE EXCHANGE OPERATOR: 08/25/17 [address] [facility] [address] [place] [address]
--- NOTE | 2017-08-30 11:13 | PN ---
PATIENT:MARSHALL SANCHES MEDICAL RECORD: [id number] LOCATION:D.M2 D.213 ADMISSION DATE: 08/21/17 PROGRESS NOTE DATE OF SERVICE: 08/29/2017 CHIEF COMPLAINT: "Worse." The patient's chest x-ray is clearly worse today. The pneumothorax is larger. She does not have an air leak. I am going to place her to a "dry" type of suction canister and turn it up to 40 cm of water to see if we can reexpand that lung. I am going to cancel her operation for tomorrow. Lying supine and exertion aggravates. Nothing alleviates. This is a progress note addendum. For the typed portion of the progress note, please see the chart. This would include the patient's past medical and surgical history, allergies, current medications, social history as well as family history. REVIEW OF SYSTEMS: No nausea, no vomiting, no fever, no chills, no chest pain. Review of systems is negative other than as is described above. PHYSICAL EXAMINATION: GENERAL: The patient appears acutely ill. Also appears chronically ill. The entire physical examination was performed in the presence of a female nurse. VITAL SIGNS: Reviewed. EARS: External ears appear normal. EYES: Extraocular movements are intact. NECK: Trachea is midline. CHEST: No intercostal retractions. PULMONARY: Mildly labored. Expiratory wheezes. ABDOMEN: No peritonitis with movement. EXTREMITIES: No peripheral cyanosis. INTEGUMENT: No rash, no ulcerations. PSYCHIATRIC: Normal affect. NEUROLOGIC: Nonfocal, no lethargy. The patient answers questions appropriately, moves all extremities well. BACK: Mild thoracic kyphosis is noted. LYMPHATIC: No lymphangitic streaking of the exposed extremities. IMPRESSION: Interval worsening in the appearance of the patient's chest x-ray. PLAN: Increase the suction to 40 cm of water. I have canceled her operation for tomorrow. TRANSINT:[id number] Voice Confirmation ID: [id number] DOCUMENT ID: [id number] PROGRESS NOTE [id number] MARSHALL SANCHES SALINAS DENISE MD at 1113 CC: [id number] DICTATION DATE: 08/29/17 1330 DRIER TENDER: 08/30/17 0154 ADM IN [place] [id number] [place] [id number]
--- NOTE | 2017-08-30 11:13 | PN ---
PATIENT:MARSHALL SANCHES MEDICAL RECORD: [id number] LOCATION:D. D.213 ADMISSION DATE: 08/21/17 PROGRESS NOTE DATE OF SERVICE: 08/28/2017 CHIEF COMPLAINT: Shortness of breath. The patient has shortness of breath, but it is improved. Her chest x-ray looks somewhat worse. I think the pneumothorax is a little larger. Lying supine and exertion aggravates. Nothing alleviates. This is a progress note addendum. For the typed portion of the progress note, please see the chart. This would include the past medical and surgical history, allergies, social history as well as current medications. REVIEW OF SYSTEMS: No nausea, no vomiting, no fever, no chills, no chest pain. Other review of system is negative other than as is described above. PHYSICAL EXAMINATION: GENERAL: The patient does not appear acutely ill. She does appear chronically ill. VITAL SIGNS: Reviewed. HEAD: External ears appear normal. EYES: Extraocular movements are intact. NECK: Trachea is midline. CHEST: No intercostal retractions. PULMONARY: Mildly labored. There is expiratory wheezing. ABDOMEN: No peritonitis with movement. EXTREMITIES: No peripheral cyanosis. INTEGUMENT: No rash, no ulcerations. BACK: Mild thoracic kyphosis is noted. LYMPHATIC: No lymphangitic streaking of the exposed extremities. IMPRESSION: Perhaps interval worsening in the appearance of the chest x-ray. PLAN: Continued chest tube to suction. TRANSINT:[id number] Voice Confirmation ID: [id number] DOCUMENT ID: [id number] SALINAS DENISE MD at 1113 CC: [id number] DICTATION DATE: 08/29/17 1328 DIRECTOR OF GIFT PLANNING: 08/30/17 0150 ADM IN [facility] [address] [place] [address]
--- NOTE | 2017-08-30 11:13 | PN ---
PATIENT:MARSHALL SANCHES MEDICAL RECORD: [id number] LOCATION:D.M2 D.213 ADMISSION DATE: 08/21/17 PROGRESS NOTE DATE OF SERVICE: 08/27/2017 This is a progress note addendum. CHIEF COMPLAINT: Pneumothorax. The patient has a persistent pneumothorax. It is actually little larger today. I placed her back to 20 cm of water suction. I have discussed her case personally with Dr. Valdez. It is looking more and more like she is going to require operative intervention in order to get this air leak to cease. She is dyspneic at rest. Dyspnea is no worse than it was yesterday. Lying supine and exertion aggravates. Nothing alleviates. This is a progress note addendum. For the typed portion of the progress note, please see the chart. This would include past medical and surgical history, allergies, social history, current medications as well as family history. REVIEW OF SYSTEMS: No nausea, no vomiting, no fever, no chills. Positive for dyspnea at rest. Positive for dyspnea on exertion. No chest pain. The review of systems is negative other than as is described above. PHYSICAL EXAMINATION: GENERAL: She does appear acutely ill. Also appears chronically ill. VITAL SIGNS: Reviewed. EARS: External ears appear normal. EYES: Extraocular movements are intact. NECK: Trachea is midline. CHEST: No intercostal retractions. PULMONARY: Expiratory wheezes. ABDOMEN: No peritonitis with movement. EXTREMITIES: No peripheral cyanosis. INTEGUMENT: No rash, no ulcerations. PSYCHIATRIC: Normal affect. NEUROLOGIC: Nonfocal, no lethargy. The patient answers questions appropriately, moves all extremities well. BACK: Mild thoracic kyphosis. LYMPHATIC: No lymphangitic streaking of the exposed extremities. IMPRESSION: 1. Worsening pneumothorax. 2. Spontaneous pneumothorax, left. PLAN: Continue chest tube to suction. Possible operation on Saturday. TRANSINT:[id number] Voice Confirmation ID: [id number] DOCUMENT ID: [id number] PROGRESS NOTE [id number] MARSHALL SANCHES HOWIE, SALINAS MARIE at 1113 CC: [id number] DICTATION DATE: 08/27/17 175 SENIOR PRODUCER: 08/28/17 0153 ADM IN [place] [id number] [place] [address]
--- NOTE | 2017-08-30 11:13 | PN ---
PATIENT:MARSHALL SANCHES MEDICAL RECORD: [id number] LOCATION:D. D.213 ADMISSION DATE: 08/21/17 PROGRESS NOTE DATE OF SERVICE: 08/26/2017 This is a progress note addendum. CHIEF COMPLAINT: None. I have personally reviewed her chest x-ray images. She still has a significant air leak. I am going to take her off suction and place her to water seal. Nothing aggravates. Nothing alleviates. She is a little less short of breath today than she has been. This is a progress note addendum. For the typed portion of the progress note including the past medical and surgical history, allergies, social history, current medications and family history. REVIEW OF SYSTEMS: No nausea, no vomiting, no fever, no chills. Positive for dyspnea, no chest pain. Review of systems is negative other than as is described above. PHYSICAL EXAMINATION: GENERAL: The patient does appear acutely ill. He does also appear chronically ill. VITAL SIGNS: Reviewed. The entire physical examination was performed in the presence of a female nurse. EARS: External ears appear normal. EYES: Extraocular movements are intact. NECK: Trachea is midline. CHEST: No intercostal retractions. PULMONARY: Moderately labored with expiratory wheezing, no stridor. ABDOMEN: No peritonitis. EXTREMITIES: No peripheral cyanosis. INTEGUMENT: No rash. BACK: Thoracic kyphosis is present. LYMPHATIC: No lymphangitic streaking of the exposed extremities. IMPRESSION: Persistent spontaneous pneumothorax with air leak. PLAN: Chest tube to water seal. Chest x-ray tomorrow. TRANSINT:[id number] Voice Confirmation ID: [id number] DOCUMENT ID: [id number] PROGRESS NOTE [id number] SANCHESMARSHALL EUBANKS SALINAS DENISE MD at 1113 CC: [id number] DICTATION DATE: 08/26/17 1804 SALES AND RETAIL MANAGEMENT RECRUITER: 08/26/17 2351 ADM IN [facility] [address] [place] [address]
[2017-08-30 11:31] VITALS: BP 109/70
--- NOTE | 2017-08-30 13:34 | NUR ---
Nutrition Follow Up: Pt is eating 78% meal avg on a regular diet. Wt loss since admit. +BM 08/28/17. Meds and labs reviewed. Noted pt to OR tomorrow. Rec continue regular diet as tolerated. RD following.
--- NOTE | 2017-08-30 14:24 | NUR ---
CONSENTS FOR PROCEDURE SIGNED BY PT AND PLACED IN CHART. PT INSTRUCTED TO REMAIN NOTHING BY MOUTH AFTER MIDNIGHT FOR PROCEDURE. PT AGREES. NPO SIGN PLACED ON PTS DOOR. WILL PASS THIS ALONG IN REPORT TO ONCOMING NURSE.
[2017-08-30 16:00] VITALS: BP 134/59
[2017-08-30 16:01] VITALS: BP 119/74
--- NOTE | 2017-08-30 16:53 | NUR ---
PT INFORMED THAT NEW ORDERS WERE PUT IN BY MAYRA LEAL NP FOR A DUCOLAX SUPPOSITORY PRN NEEDED. ASKED PT IF SHE WOULD LIKE IT NOW AND PT STATES NO. I INFORMED PT THAT THIS IS NOT A SCHEDULED MEDICATION AND PT WILL NEED TO ASK NURSE FOR IT. PT UNDERSTANDS.
--- NOTE | 2017-08-30 18:29 | NUR ---
PT IS CURRENTLY SITTING UP IN BED WITH EYES OPEN RESTING. PT DENIES ANY NEED AT THIS CURRENT TIME. CALL LIGHT IS IN REACH. WILL CONTINUE TO MONITOR.
--- NOTE | 2017-08-30 18:42 | NUR ---
NOTICED WHILE ASSISTING PT OFF BEDPAN, SUCTION CONNECTED TO CHEST TUBE IS AT HIGH INTERMITTENT SUCTION (DR. DENISE WAS IN ROOM PRIOR ON SHIFT). NO DRAINAGE SEEN FROM DRY SEAL CHAMBER.
--- NOTE | 2017-08-30 19:34 | NUR ---
PT RESTING IN BED. NS INFUSING TO LEFT WRIST IV AT 15. PT IS ON 2L OF O2 NC WITH HUMIDITY. PT HOB IS 30. LEFT CHEST TUBE TO DRY DRAINAGE SYSTEM. PT VERBALIZES UNDERSTANDING OF NPO AFTER MN. PT DENIES ANY NEEDS. NO S/S OF DISTRESS. WILL CPOC
[2017-08-31] VITALS (15 sets, daily range): BP systolic 93–112; BP diastolic 51–69
--- NOTE | 2017-08-31 | NUR ---
PT RESTING. PT ASKS ME TO MOVE DRINKS BECAUSE IT IS TIME TO BE NPO. PT DENIES ANY NEEDS. NO S/S OF DISTRESS. WILL CPOC
[2017-08-31 06:28] LABS: CALC OSMOLALITY 281 mosm/kg (275-300); CALCIUM 9.1 mg/dL (8.5-10.1); CARBON DIOXIDE 31.8 mmol/L (21.0-32.0); CHLORIDE - SERUM 103 mmol/L (98-107); CREATININE - SERUM 0.6 mg/dL (0.6-1.3); GLUCOSE 113 mg/dL (74-106); POTASSIUM - SERUM 4.3 mmol/L (3.5-5.1); SODIUM 139 mmol/L (136-145); UREA NITROGEN 21 mg/dL (7-18); eGFR NON AFRICAN AMERICAN > 90 mL/min (90-120)
--- NOTE | 2017-08-31 06:51 | NUR ---
PT RESTING IN BED. PT DENIES ANY QUESTIONS OR CONCERNS REGARDING PROCEDURE TODAY. PT DENIES ANY NEEDS. NO S/S OF DISTRESS. WILL CPOC
--- NOTE | 2017-08-31 07:37 | NUR ---
PRE-OP MEDS GIVEN AT THIS TIME. PT RECEIVING UPDRAFT DENIES ANY NEEDS AT THIS TIME. RESP EVEN AND UNLABORED, CHEST TUBE TO LEFT SIDE ON HIGH CONT SUCTION. BED LOW AND WHEELS LOCKED, BEDSIDE RAILS X2, CALL LIGHT IN REACH, NAD NOTED, WILL CONTINUE TO MONITOR.
--- NOTE | 2017-08-31 08:07 | NUR ---
PT TRANSFERED TO OR, VIA BED, NAD NOTED.
--- NOTE | 2017-08-31 12:50 | NUR ---
RECEIVED PER BED FROM RECOVERY ROOM. AWAKE AND ALERT SKIN COOL AND DRY.UNABLE TO GET A TEMP BEAR HUGGER APPLIED. CHEST LEFT SIDE TO SUCTION 20 CM BLOODY DRAINAGE NOTED 100 ML IN CONTAINER. DRAINAGE FLUCTUATING WITH RESP. HERRERA CATH INSERTED IN ANODIZER WITH IMMEDAITE RETURN OF CLEAR YELLOW URINE. ABD SOFT AND FLAT WITH BOWEL SOUNDS PRESENT. RIGHT LUNG CLEAR. LEFT LUNG WITH EXP WHEEZING NOTED. IV LEFT AC INFUSING WITH NS AT 100 ML HOUR. HELP LOCK RIGHT FOREARM IV. DILAUDID MANAGER OF ENGINEERING SET UP 0.2MG Q 10 MIN WITHOUT LOCKOUT. EXPLAINED TO PATIENT HOW TO USE MANAGER OF ENGINEERING. MONITOR SR. MOULTON RIGHT RADIAL NO DRAINAGE OR SWELLING AT SITE. GOOD WAVE FORM. ZEROED AND FLUSHED LINE. FAMILY IN TO VISIT. HEAD OF BED ELEVATED 25 DEGREES. DRESSING LEFT SIDE DRY AND INTACT. SIDE RAILS ELEVATED
[2017-08-31 14:33] LABS: HEMATOCRIT 36.9 % (36.0-48.0); MCH 30.8 pg (26.0-34.0); MCHC 32.5 g/dL (31.0-37.0); MCV 94.9 fL (80.0-100.0); MEAN PLATELET VOLUME 8.7 fL (7.4-10.4); PLATELET COUNT 277 10x3/uL (130-400); RBC 3.89 10x6/uL (4.00-5.40); RDW 12.8 % (11.5-14.5); WBC 22.8 10x3/uL (4.8-10.8)
[2017-08-31 14:44] LABS: ALBUMIN 2.4 g/dL (3.4-5.0); ALKALINE PHOSPHATASE 131 U/L (46-116); ALT (SGPT) 43 U/L (10-68); BILIRUBIN - TOTAL 0.54 mg/dL (0.2-1.3); CALC OSMOLALITY 277 mosm/kg (275-300); CALCIUM 8.3 mg/dL (8.5-10.1); CARBON DIOXIDE 30.3 mmol/L (21.0-32.0); CHLORIDE - SERUM 102 mmol/L (98-107); CREATININE - SERUM 0.6 mg/dL (0.6-1.3); MAGNESIUM - SERUM 1.8 mg/dL (1.8-2.4); POTASSIUM - SERUM 4.4 mmol/L (3.5-5.1); PRE-ALBUMIN 20.6 mg/dL (18.0-35.7); PROTEIN - SERUM 5.9 g/dL (6.4-8.2); SODIUM 135 mmol/L (136-145); UREA NITROGEN 23 mg/dL (7-18); eGFR NON AFRICAN AMERICAN > 90 mL/min (90-120)
[2017-08-31 14:48] LABS: GLUCOSE 169 mg/dL (74-106)
[2017-08-31 15:07] LABS: LYMPHOCYTES 11 % (15-50); MONOCYTES 1 % (2-11); NEUTROPHILS 78 % (40-80); PLATELET ESTIMATE NORMAL
--- NOTE | 2017-08-31 17:09 | NUR ---
PATIENT'S FAMILY HAVE TAKEN HER TEETH HOME. WILL RETURN WITH THEM IN AM. TOMATOE SOUP,ICE CREAM AND MILK SERVED AT PATIENT REQUEST. PATIENT DID NOT WANT HER CHICKEN AND DUMPLINS. DAUGHTER IS ASSISTING PATIENT WITH MEAL.MONITOR SR. DR. DENISE CALLED NOTIFIED OF CHEST TUBE OUTPUT AND CHEST TUBE LEAK. STATES HE IRRIGATED WOUND WITH LARGE AMOUNT AND NOT TO WORRY ABOUT CHEST TUBE OUT PUT. DILAUDID JIG BOX OPERATOR EFFECTIVE TO CONTROL PATIENT'S PAIN.
--- NOTE | 2017-08-31 19:15 | NUR ---
RECEIVED CARE OF PT, ASSESSMENT PER FLOWSHEET. PT AROUSES TO VOICE, ORIENTED X 4, ON 3L O2 VIA NC, EXP WHEEZES AUSCULTATED IN RLL AND LT SIDE, LT SIDED CT TO 20 OF SXN, DRESSING CDI, AIR LEAK NOTED-MD AWARE, LT CHEST DRESSING CDI, HR ST ON CM, HERRERA CATH PATENT WITH CONCENTRATED URINE NOTED, PPP, RT RADIAL A-LINE FLUSHED AND ZEROED-GOOD WAVEFORM NOTE ON MONITOR, DILAUDID GEOPHYSICAL PROSPECTOR AND CALL LIGHT BUTTON IN REACH, WATER PROVIDED PER REQUEST, DENIES ANY OTHER NEEDS AT THIS TIME.
[2017-08-31 20:05] LABS: HEMATOCRIT 35.6 % (36.0-48.0); HEMOGLOBIN 11.8 g/dL (12-16)
--- NOTE | 2017-08-31 21:15 | NUR ---
NO VISITORS PRESENT AT THIS TIME, PT RESTING IN BED WITH CALL LIGHT AND STAFF MECHANICAL ENGINEER BUTTON IN REACH, CONT TO MONITOR.
--- NOTE | 2017-08-31 23:05 | NUR ---
REASSESSMENT PER FLOWSHEET, NO ACUTE CHANGES NOTED AT THIS TIME, CONT TO MONITOR.
[2017-09-01] VITALS (23 sets, daily range): BP systolic 81–154; BP diastolic 46–92
--- NOTE | 2017-09-01 01:10 | NUR ---
PT RESTING IN BED WITH EYES CLOSED, VSS, CONT POC.
--- NOTE | 2017-09-01 03:15 | NUR ---
REASSESSMENT PER FLOWSHEET. BLOODY DRAINAGE NOTED FROM CT CONNECTION TO CANNISTER CONNECTION-AREA REINFORCED, CT DRESSING CHANGED, PARTIAL LINEN CHANGE DONE. NO DRAINAGE NOTED FROM AROUND ACTUAL CT SITE, SUTURES INTACT, WILL MONITOR CLOSELY.
[2017-09-01 04:54] LABS: BASOPHILS 0.1 % (0-2); EOSINOPHILS 0.7 % (0-7); HEMATOCRIT 33.2 % (36.0-48.0); HEMOGLOBIN 10.7 g/dL (12-16); IMMATURE GRANULOCYTES 0.4 % (0-5); LYMPHOCYTES 8.4 % (15-50); MCH 30.7 pg (26.0-34.0); MCHC 32.2 g/dL (31.0-37.0); MCV 95.1 fL (80.0-100.0); MEAN PLATELET VOLUME 9.1 fL (7.4-10.4); MONOCYTES 7.3 % (2-11); NEUTROPHILS 83.1 % (40-80); PLATELET COUNT 282 10x3/uL (130-400); RBC 3.49 10x6/uL (4.00-5.40)
[2017-09-01 04:57] LABS: WBC 16.1 10x3/uL (4.8-10.8)
[2017-09-01 05:02] LABS: CALC OSMOLALITY 279 mosm/kg (275-300); CALCIUM 8.2 mg/dL (8.5-10.1); CARBON DIOXIDE 29.7 mmol/L (21.0-32.0); CHLORIDE - SERUM 103 mmol/L (98-107); CREATININE - SERUM 0.5 mg/dL (0.6-1.3); GLUCOSE 124 mg/dL (74-106); MAGNESIUM - SERUM 1.7 mg/dL (1.8-2.4); PHOSPHOROUS 3.2 mg/dL (2.5-4.9); POTASSIUM - SERUM 4.5 mmol/L (3.5-5.1); SODIUM 138 mmol/L (136-145); UREA NITROGEN 20 mg/dL (7-18); eGFR NON AFRICAN AMERICAN > 90 mL/min (90-120)
--- NOTE | 2017-09-01 06:10 | NUR ---
AM LABS REVIEWED, 1 OF 2 GM TOTAL MAGNESIUM SULFATE INITIATED PER ELECTROLYTE PROTOCOL TO TREAT MAG LEVEL OF 1.7
--- NOTE | 2017-09-01 14:15 | NUR ---
UP TO CHAIR WITH ASSISTANCE OF PT.
--- NOTE | 2017-09-01 15:15 | NUR ---
BACK TO BED. TOLERATED WELL.
--- NOTE | 2017-09-01 19:30 | NUR ---
REPORT RECIEVED. ASSESSMENT COMPLETE PER FLOW SHEET. PT SLEEPING COMFORTABLY. DENIES NEEDS OR PAIN. VSS WILL CONTINUE TO MONITOR
--- NOTE | 2017-09-01 21:00 | NUR ---
NO NEW CHANGES AT THIS TIME. VSS. PT SLEEPING COMFORTABLY. WILL CONTINUE TO MONITOR
--- NOTE | 2017-09-01 23:30 | NUR ---
REASSESSMENT COMPLETEPER FLOW SHEET. VSS. NO NEW CHANGES. WILL CONTINUE TO MONITOR
[2017-09-02] VITALS (24 sets, daily range): BP systolic 78–99; BP diastolic 50–77
--- NOTE | 2017-09-02 01:20 | NUR ---
PT SLEEPING COMFORTABLY. VSS NO NEW CHANGES. WILL CONTINUE TO MONITOR
--- NOTE | 2017-09-02 03:04 | NUR ---
REASSESSMENT COMPLETE PER FLOW SHEET. VSS. NO NEW CHANGES. PT SLEEPING COMFORTABLY. WILL CONTINUE TO MONITOR
[2017-09-02 04:53] LABS: BASOPHILS 0.1 % (0-2); EOSINOPHILS 2.2 % (0-7); HEMATOCRIT 28.4 % (36.0-48.0); HEMOGLOBIN 9.4 g/dL (12-16); IMMATURE GRANULOCYTES 0.2 % (0-5); INR 1.2 (0.85-1.17); MCHC 33.1 g/dL (31.0-37.0); MCV 93.7 fL (80.0-100.0); MONOCYTES 8.1 % (2-11); NEUTROPHILS 76.4 % (40-80); PLATELET COUNT 241 10x3/uL (130-400); PROTIME 15.1 SECONDS (11.6-15.0); RBC 3.03 10x6/uL (4.00-5.40); RDW 13.2 % (11.5-14.5)
[2017-09-02 04:54] LABS: WBC 11.9 10x3/uL (4.8-10.8)
[2017-09-02 05:16] LABS: ALKALINE PHOSPHATASE 157 U/L (46-116); BILIRUBIN - TOTAL 0.37 mg/dL (0.2-1.3); CALCIUM 7.5 mg/dL (8.5-10.1); CARBON DIOXIDE 28.2 mmol/L (21.0-32.0); CHLORIDE - SERUM 101 mmol/L (98-107); CREATININE - SERUM 0.4 mg/dL (0.6-1.3); GLUCOSE 95 mg/dL (74-106); MAGNESIUM - SERUM 1.7 mg/dL (1.8-2.4); PHOSPHOROUS 2.4 mg/dL (2.5-4.9); PRO BNP 771 pg/mL (0-125); PROTEIN - SERUM 4.7 g/dL (6.4-8.2); SODIUM 134 mmol/L (136-145); eGFR NON AFRICAN AMERICAN > 90 mL/min (90-120)
[2017-09-02 05:22] LABS: ALBUMIN 1.7 g/dL (3.4-5.0); ALT (SGPT) 65 U/L (10-68); CALC OSMOLALITY 267 mosm/kg (275-300); POTASSIUM - SERUM 3.8 mmol/L (3.5-5.1); UREA NITROGEN 13 mg/dL (7-18)
--- NOTE | 2017-09-02 11:10 | NUR ---
NUTRITION F/U PT WITH REG DIET. ~25% INTAKE BREAKFAST THIS AM. WILL CONTINUE TO PROVIDE DIET, HONOR FOOD PREFERENCES, MONITOR PO INTAKE. RD FOLLOWING
--- NOTE | 2017-09-02 12:33 | NUR ---
NUTRITION F/U RECEIVED INFO THAT PT ALLERGIC TO EGGS. ADDED TO DIET ORDER "NO EGGS". RD FOLLOWING
--- NOTE | 2017-09-02 16:05 | OP ---
PATIENT NAME: MARSHALL SANCHES MEDICAL RECORD: [id number] :52 LOCATION:.[facility] D.2308 ADMISSION DATE:08/21/17 SURGEON: SALINAS DENISE MD DATE OF OPERATION: 08/31/2017 PREOPERATIVE DIAGNOSES: 1. Persistent left pneumothorax. 2. Spontaneous pneumothorax. POSTOPERATIVE DIAGNOSES: 1. Persistent left pneumothorax. 2. Spontaneous pneumothorax. 3. Apical blebs and extensive scarring between the lung and the chest wall. PROCEDURES: 1. Left thoracoscopy. 2. Bleb resection. 3. Cautery of blebs with the argon plasma raw material handler. 4. Talc pleurodesis. SURGEON: Salinas Denise MD GUM WORKER: None. BLOOD LOSS: Less than 50 cc. ANESTHESIA: General. COMPLICATIONS: None. The risks, possible complications, and alternatives to the procedure were explained to the patient. She elects to proceed. The discussion specifically included, but was not limited to, bleeding requiring an emergency reoperation, infection, the need for thoracotomy, and the possible need for reoperation. We also discussed that she could develop a pneumothorax again sometime in the future. OPERATIVE COURSE: The patient was conveyed to the operating room electively on 08/31/2017. General anesthesia was induced by the anesthesia staff. This was double-lumen endotracheal anesthesia. The patient was positioned with the left side up. The chest tube was removed. Sutures were cut. The left chest was sterilely prepped and draped. Through the existing chest tube site, a thoracoscopic trocar was inserted. In the mid axillary line at approximately the level of the 9th intercostal space, an incision was accomplished and I dissected over rib and placed another thoracoscopic trocar. Utilizing video thoracoscopy, I began an extensive adhesiolysis. Some of this was sharp. Some of this was done with an endoscopic Kittner. Once I had freed up enough space, I inserted another thoracoscopic trocar this time in the posterior axillary line approximately at the level of the 5th intercostal space. I continued my dissection of the adhesions. They were fairly dense apically and this required some sharp dissection to free up the apex of the lung. I then took an Endo-CHRIS type stapler with a white load and stapled away some apical blebs. I then utilized the argon plasma raw material handler to cauterize any surface blebs apically. I then sprayed talc within the left hemithorax as a OPERATIVE REPORT [id number] MARSHALL SANCHES pleurodesis. A 28-Maori chest tube was placed through the inferior most trocar site. Trocars were removed. The intercostal muscles were approximated with interrupted #1 Vicryls. The skin was closed with metallic clips except at the chest tube site where it was closed with a horizontal mattress of 2-0 nylon and then another 2-0 nylon was used to secure the chest tube in place. The chest tube was attached to suction canister. A sterile dressing was applied. The patient was then extubated and conveyed to post-anesthesia care unit. TRANSINT:[id number] Voice Confirmation ID: [id number] DOCUMENT ID: [id number] SALINAS DENISE MD at 1605 CC: JUNG WOLFE MD [id number] DICTATION DATE: 08/31/17 1126 PHOTOGRAPH DEVELOPER: 08/31/17 1237 ADM IN [place] [id number] [place] [address]
--- NOTE | 2017-09-02 19:00 | NUR ---
REPORT RECIEVED. ASSESSMENT COMPLET EPER FLOW SHEET. VSS. DENIES PAIN OR NEEDS. WILL CONTINUE TO MONITOR
--- NOTE | 2017-09-02 21:00 | NUR ---
NO FAMILY AT THIS TIME. DENIES PAIN OR NEEDS. VSS. WILL CONTINUE TO MONITOR
--- NOTE | 2017-09-02 23:20 | NUR ---
NO NEW CHANGES. VSS. DENIES PAIN OR NEEDS. REPOSITIONED UP INBED. WILL CONTINUE TO MONITOR
[2017-09-03] VITALS (10 sets, daily range): BP systolic 82–100; BP diastolic 46–62
--- NOTE | 2017-09-03 01:20 | NUR ---
PT SLEEPING COMFORTABLY. VSS. WILL CONTINUE TO MONITOR
--- NOTE | 2017-09-03 03:30 | NUR ---
NO NEW CHANGES AT THIS TIME. GIVEN COFFEE PER REQUEST. DENIES PAIN OR FURTHER NEEDS. WILL CONTINUE TO MONITOR
--- NOTE | 2017-09-03 10:19 | NUR ---
PT BATHED AND HERRERA CATH CARE COMPLETE, REPORT CALLED TO FLOOR NURSE [place]. DR MICHELLE ROUNDED AND DR DENISE ROUNDED. PT AMB 20 STEPS WITH PT.
--- NOTE | 2017-09-03 10:24 | NUR ---
ARRIVED TO 2123 VIA . PT WALKED TO CHAIR WITH PT. HERRERA DRAINING CONCETRATED URINE. CHEST TUBE TO WATER SEAL DRAINAGE. CALL LIGHT PLACED IN REACH. MONITOR SHOWS SR @ RATE OF 90.
--- NOTE | 2017-09-03 19:48 | NUR ---
PT LYING IN BED, EYES CLOSED, RESPIRATIONS EVEN AND UNLABORED. PT IS ROUSABLE TO VERBAL STIMULI, DENIES ANY NEEDS. CONTINUE TO MONITOR CLOSELY. BED LOW, CALL LIGHT IN REACH, PHARMACY SERVICES DIRECTOR DILAUDID IS EMPTY, WILL BE CHANGED SOON.
[2017-09-04] VITALS: BP 99/59
--- NOTE | 2017-09-04 00:50 | NUR ---
PT RESTING COMFORTABLY, EASILY ROUSABLE TO VERBAL STIMULI, DENIES ANY NEEDS. CHEST TUBE DRAINING, HERRERA CATHETER DRAINING, PT ELEVATED TO 30 DEGREES, WITH PILLOW UNDER LEFT SIDE AT THIS TIME. WILL AND HAVE REPOSITIONED PER PT REQUEST AND PRN. CONTINUE TO MONITOR PT CLOSELY. BED LOW, CALL LIGHT IN REACH, SIDE RAILS X 2.
[2017-09-04 04:00] VITALS: BP 108/62
[2017-09-04 05:13] LABS: BASOPHILS 0.1 % (0-2); EOSINOPHILS 1.5 % (0-7); HEMATOCRIT 26.7 % (36.0-48.0); IMMATURE GRANULOCYTES 0.2 % (0-5); LYMPHOCYTES 12.4 % (15-50); MCH 31.3 pg (26.0-34.0); MCHC 33.7 g/dL (31.0-37.0); MCV 92.7 fL (80.0-100.0); MEAN PLATELET VOLUME 8.7 fL (7.4-10.4); MONOCYTES 5.3 % (2-11); NEUTROPHILS 80.5 % (40-80); PLATELET COUNT 273 10x3/uL (130-400); RBC 2.88 10x6/uL (4.00-5.40)
[2017-09-04 05:51] LABS: CALC OSMOLALITY 272 mosm/kg (275-300); CALCIUM 8.2 mg/dL (8.5-10.1); CARBON DIOXIDE 31.2 mmol/L (21.0-32.0); CHLORIDE - SERUM 103 mmol/L (98-107); CREATININE - SERUM 0.4 mg/dL (0.6-1.3); GLUCOSE 119 mg/dL (74-106); POTASSIUM - SERUM 3.3 mmol/L (3.5-5.1); SODIUM 137 mmol/L (136-145); UREA NITROGEN 8 mg/dL (7-18); eGFR NON AFRICAN AMERICAN > 90 mL/min (90-120)
[2017-09-04 08:11] VITALS: BP 113/54
--- NOTE | 2017-09-04 08:34 | NUR ---
RESTS WITH EYES CLOSED. CT INTACT. RN GASTROENTEROLOGY FOR PAIN CONTROL NOTED. WILL MONITOR.
[2017-09-04 12:10] VITALS: BP 105/65
[2017-09-04 13:16] LABS: ALP - ISO (ALP) 126 IU/L (39-117); ALP - ISO (BONE) FRACTION 38 % (14-68); ALP - ISO (LIVER) FRACTION 62 % (18-85); ALP - ISO(INTESTINAL) FRACTION 0 % (0-18)
[2017-09-04 15:26] VITALS: BP 109/61
--- NOTE | 2017-09-04 18:20 | NUR ---
WITHOUT CHANGES OR DISTRESS NOTED AT THIS TIME. DENIES NEEDS.
--- NOTE | 2017-09-04 19:37 | NUR ---
PT AWAKE, ALERT, ORIENTED, ASKING TO USE BED URRUTIA. PT DENIES ANY OTHER NEEDS. CHEST TUBE STILL INTACT, HERRERA PRESENT AND DRAINING PROPERLY. WILL CONTINUE TO MONITOR CLOSELY. BED LOW, CALL LIGHT IN REACH, SIDE RAILS X 2, HOB 30 DEGREES.
[2017-09-04 20:00] VITALS: BP 112/67
--- NOTE | 2017-09-04 22:17 | NUR ---
PT C/O BEING CONSTIPATED, REQUESTING A LAXATIVE. I DID ADMINISTER PT HER PRN DULCOLAX SUPPS, WILL CONTINUE TO MONITOR CLOSELY.
[2017-09-05 04:23] VITALS: BP 120/64
--- NOTE | 2017-09-05 04:32 | NUR ---
PT RESTING COMFORTABLY, EASILY ROUSABLE TO VERBAL STIMULI, DENIES ANY NEEDS. CONTINUE TO MONITOR CLOSELY. BED LOW, CALL LIGHT IN REACH, SIDE RAILS X 2, HOB 30 DEGREES.
[2017-09-05 05:55] LABS: BASOPHILS 0.2 % (0-2); EOSINOPHILS 1.8 % (0-7); HEMATOCRIT 28.6 % (36.0-48.0); HEMOGLOBIN 9.5 g/dL (12-16); IMMATURE GRANULOCYTES 0.2 % (0-5); LYMPHOCYTES 14.3 % (15-50); MCH 30.8 pg (26.0-34.0); MCHC 33.2 g/dL (31.0-37.0); MCV 92.9 fL (80.0-100.0); MEAN PLATELET VOLUME 8.5 fL (7.4-10.4); MONOCYTES 5.5 % (2-11); RBC 3.08 10x6/uL (4.00-5.40); RDW 13.1 % (11.5-14.5); WBC 8.9 10x3/uL (4.8-10.8)
[2017-09-05 06:07] LABS: PLATELET COUNT 334 10x3/uL (130-400)
[2017-09-05 06:08] LABS: CALC OSMOLALITY 280 mosm/kg (275-300); CALCIUM 8.4 mg/dL (8.5-10.1); CARBON DIOXIDE 28.6 mmol/L (21.0-32.0); CHLORIDE - SERUM 106 mmol/L (98-107); CREATININE - SERUM 0.4 mg/dL (0.6-1.3); GLUCOSE 105 mg/dL (74-106); MAGNESIUM - SERUM 1.7 mg/dL (1.8-2.4); POTASSIUM - SERUM 3.7 mmol/L (3.5-5.1); SODIUM 142 mmol/L (136-145); UREA NITROGEN 7 mg/dL (7-18); eGFR NON AFRICAN AMERICAN > 90 mL/min (90-120)
--- NOTE | 2017-09-05 07:34 | NUR ---
ASSESSMENT DONE. DENIES NEEDS.
[2017-09-05 07:42] VITALS: BP 112/69
--- NOTE | 2017-09-05 13:28 | NUR ---
Nutrition Follow Up: Pt reported that her appetite is good. Per chart pt with some constipation and is now on a bowel regimen. Pt is eating 46% meal avg on a regular diet. Wt gain since admit noted. +BM 09/05/17. Meds and labs reviewed. RD following.
--- NOTE | 2017-09-05 15:30 | NUR ---
REFUSED TO HAVE HERRERA CATH
[2017-09-05 15:37] VITALS: BP 119/54
--- NOTE | 2017-09-05 17:56 | NUR ---
WITHOUT CHAGES OR DISTRESS NOTED AT THIS TIME. DENIES NEEDS.
--- NOTE | 2017-09-05 20:36 | NUR ---
PT LYING IN BED, RESTING COMFORTABLY, EASILY ROUSABLE TO VERBAL STIMULI. PT DENIES ANY NEEDS. [facility] SHEA IB[facility], STATED DURING REPORT THAT PT HAS HAD MULTIPLE BM'S TODAY. PT DENIES ANY NEEDS. CONTINUE TO MONITOR CLOSELY. BED LOW, CALL LIGHT IN REACH, SIDE RAILS X 2, HOB 30 DEGREES.
[2017-09-06 06:57] LABS: BASOPHILS 0.3 % (0-2); EOSINOPHILS 3.5 % (0-7); HEMOGLOBIN 8.8 g/dL (12-16); IMMATURE GRANULOCYTES 0.4 % (0-5); LYMPHOCYTES 18.8 % (15-50); MCHC 33.8 g/dL (31.0-37.0); MCV 91.5 fL (80.0-100.0); MEAN PLATELET VOLUME 8.5 fL (7.4-10.4); MONOCYTES 7.6 % (2-11); NEUTROPHILS 69.4 % (40-80); PLATELET COUNT 344 10x3/uL (130-400); RBC 2.84 10x6/uL (4.00-5.40); RDW 13.1 % (11.5-14.5); WBC 7.9 10x3/uL (4.8-10.8)
[2017-09-06 07:09] LABS: CALC OSMOLALITY 278 mosm/kg (275-300); CALCIUM 8.2 mg/dL (8.5-10.1); CARBON DIOXIDE 29.4 mmol/L (21.0-32.0); CHLORIDE - SERUM 105 mmol/L (98-107); CREATININE - SERUM 0.4 mg/dL (0.6-1.3); GLUCOSE 102 mg/dL (74-106); MAGNESIUM - SERUM 1.7 mg/dL (1.8-2.4); POTASSIUM - SERUM 3.3 mmol/L (3.5-5.1); SODIUM 141 mmol/L (136-145); UREA NITROGEN 8 mg/dL (7-18); eGFR NON AFRICAN AMERICAN > 90 mL/min (90-120)
--- NOTE | 2017-09-06 07:39 | NUR ---
ASSESSMENT DONE. PATIENT DENIES NEEDS.
--- NOTE | 2017-09-06 07:51 | NUR ---
RESP UL ON . IV PATENT. CT INTACT. CALL LIGHT IN REACH. WILL CONT. PLAN OF CARE.
[2017-09-06 08:46] VITALS: BP 112/57
--- NOTE | 2017-09-06 10:05 | NUR ---
PATIENT REFUSED CATHETER REMOVAL.
[2017-09-06 12:12] VITALS: BP 107/58
[2017-09-06 15:34] VITALS: BP 108/60
--- NOTE | 2017-09-06 17:14 | NUR ---
PATIENTS HERRERA CATHETER REMOVED. TOLERATED WELL.
--- NOTE | 2017-09-06 17:29 | NUR ---
PATIENT STATES NO NEEDS AT THIS TIME. NO DISTRESS NOTED.
--- NOTE | 2017-09-06 19:16 | NUR ---
ALERT/AWAKE DENIES ANY NEEDS. HAS MARKET RESEARCH SENIOR PROJECT MANAGER WITH DILAUDID FOR PAIN CONTROL. LEFT CHEST TUBE INTACT DRAINING SMALL AMOUNT OF SEROSANGUINOUS FLUID. INSERTION SITE WITH DRSG C/D/I. TELEMETRY SHOWS 106 CAFIB. ORIENTED TO CL FOR ANY NEEDS.
[2017-09-06 20:36] VITALS: BP 105/62
--- NOTE | 2017-09-06 21:30 | NUR ---
REQUESTED BEDPAN TO VOID. VOIDED 300 CC ZEKE COLORED URINE. NO OTHER NEEDS VOICED.
[2017-09-07 01:44] VITALS: BP 102/49
--- NOTE | 2017-09-07 03:10 | NUR ---
RESTING WITH EYES CLOSED. RR EVEN U/L. NO S/S OF PAIN OR DISCOMFORT. CL IN REACH.
[2017-09-07 05:42] VITALS: BP 102/63; BP 105/62
--- NOTE | 2017-09-07 06:25 | NUR ---
AWAKE WATCHING TV. ADMIN SCHED MED. REQUESTED BEDPAN TO VOID.
[2017-09-07 07:13] LABS: BASOPHILS 0.3 % (0-2); EOSINOPHILS 3.5 % (0-7); HEMATOCRIT 26.5 % (36.0-48.0); HEMOGLOBIN 8.6 g/dL (12-16); IMMATURE GRANULOCYTES 0.3 % (0-5); LYMPHOCYTES 23.8 % (15-50); MCH 30.6 pg (26.0-34.0); MCHC 32.5 g/dL (31.0-37.0); MEAN PLATELET VOLUME 8.5 fL (7.4-10.4); MONOCYTES 9.3 % (2-11); NEUTROPHILS 62.8 % (40-80); PLATELET COUNT 364 10x3/uL (130-400); RBC 2.81 10x6/uL (4.00-5.40); RDW 13.3 % (11.5-14.5); WBC 7.2 10x3/uL (4.8-10.8)
[2017-09-07 07:14] LABS: MCV 94.3 fL (80.0-100.0)
--- NOTE | 2017-09-07 07:31 | NUR ---
ASSESSMENT COMPLETED. TELEMERTY SHOWS ST AT 96. O2 AT 2 L/M PER NC. LEFT SIDED CHEST TUBE ATTACHED TO LOW INTERMITTEN SUCTION. PROJECT ADMINISTRATOR PUMP WITH DILAUDID AT 0.2MG EVERY 10MIN WITH NO LOCKOUT.LEFT FA IV WITH NS AT 75. DENIES ANY NEEDS. WILL MONITOR
[2017-09-07 07:32] LABS: CALC OSMOLALITY 276 mosm/kg (275-300); CALCIUM 7.9 mg/dL (8.5-10.1); CARBON DIOXIDE 29.5 mmol/L (21.0-32.0); CHLORIDE - SERUM 103 mmol/L (98-107); CREATININE - SERUM 0.5 mg/dL (0.6-1.3); GLUCOSE 107 mg/dL (74-106); MAGNESIUM - SERUM 1.7 mg/dL (1.8-2.4); POTASSIUM - SERUM 3.9 mmol/L (3.5-5.1); SODIUM 139 mmol/L (136-145); UREA NITROGEN 9 mg/dL (7-18); eGFR NON AFRICAN AMERICAN > 90 mL/min (90-120)
[2017-09-07 08:19] VITALS: BP 111/68
--- NOTE | 2017-09-07 10:36 | NUR ---
DR SIMMS HERE. NO CHANGES MADE. PT TO HAVE CHEST XRAY. PT DENIES ANY NEEDS. TELEMERTY SHOWS SR. WILL MONITOR
[2017-09-07 12:00] VITALS: BP 110/57
--- NOTE | 2017-09-07 15:49 | NUR ---
RESTING QUIETLY VISITING WITH FAMILY NAD NOTED
[2017-09-07 15:58] VITALS: BP 108/62
--- NOTE | 2017-09-07 16:53 | NUR ---
IN PATIENT CHART TO HANG DOCUMENT HANGING OF IV FLUIDS.
--- NOTE | 2017-09-07 18:23 | NUR ---
SIITING UP IN BED. CHEST TUBE TO RIGHT CHEST . DENIES ANY NEEDS. CALL LIGHT IN REACH WITH SR UP, TELEMERTY SHOWS SR. WILL MONITOR. AXMINSTER WEAVER PUMP WITH DILAUDID AT AT 0.2 Q 10 MIN WITH NO LOCKOUT. WILL MONITOR
--- NOTE | 2017-09-07 19:43 | NUR ---
ALERT/AWAKE WATCHING TV. ASSESSMENTS COMPLETED. LEFT CHEST TUBE INSERTION SITE INTACT, DRAINING TO LIS. HAS UNIT MANAGER RN WITH DILAUDID FOR PAIN CONTROL. TELEMETRY SHOWS 92 SR. ORIENTED TO CALL LIGHT FOR ANY NEEDS.
[2017-09-07 20:00] VITALS: BP 108/66
[2017-09-08] VITALS: BP 107/61
--- NOTE | 2017-09-08 00:30 | NUR ---
MANAGER HUMAN RESOURCES PRESENT IN ROOM TAKING VS. DENIES ANY NEEDS OR DISCOMFORTS.
[2017-09-08 04:00] VITALS: BP 108/63
--- NOTE | 2017-09-08 04:21 | NUR ---
AWAKE, REQUESTED BEDPAN TO VOID.
--- NOTE | 2017-09-08 06:00 | NUR ---
ASSISTED ONTO STANDING SCALE FOR WEIGHT. ABLE TO STAND WITH MINIMUM ASSISTANCE.
[2017-09-08 06:50] LABS: BASOPHILS 0.1 % (0-2); EOSINOPHILS 2.9 % (0-7); HEMATOCRIT 27.3 % (36.0-48.0); HEMOGLOBIN 8.9 g/dL (12-16); IMMATURE GRANULOCYTES 0.2 % (0-5); LYMPHOCYTES 19.3 % (15-50); MCH 30.9 pg (26.0-34.0); MCHC 32.6 g/dL (31.0-37.0); MCV 94.8 fL (80.0-100.0); MEAN PLATELET VOLUME 8.7 fL (7.4-10.4); MONOCYTES 6.9 % (2-11); NEUTROPHILS 70.6 % (40-80); PLATELET COUNT 376 10x3/uL (130-400); RBC 2.88 10x6/uL (4.00-5.40); RDW 13.2 % (11.5-14.5)
[2017-09-08 07:06] LABS: CALC OSMOLALITY 275 mosm/kg (275-300); CALCIUM 8.5 mg/dL (8.5-10.1); CARBON DIOXIDE 30.7 mmol/L (21.0-32.0); CHLORIDE - SERUM 105 mmol/L (98-107); CREATININE - SERUM 0.4 mg/dL (0.6-1.3); GLUCOSE 107 mg/dL (74-106); SODIUM 139 mmol/L (136-145); UREA NITROGEN 8 mg/dL (7-18); eGFR NON AFRICAN AMERICAN > 90 mL/min (90-120)
[2017-09-08 07:58] VITALS: BP 101/61
--- NOTE | 2017-09-08 08:07 | NUR ---
ASSESSMENT COMPLETED. TELEMERTY SHOWS ST 114. O2 AT 2 L/M PER NC. LEFT SIDED CHEST TUBE WITH LOW INTERMITTEN SUCTION.IV TO LEFT FA. LEAD EMBEDDED SOFTWARE ENGINEER PUMP WITH DILAUDID 0.2MG EVERY 10 MIN WITH NO LOCKOUT. SCDS OFF. WILL MONITOR
--- NOTE | 2017-09-08 08:19 | NUR ---
PT EATING BREAKFAST DENIES ANY NEEDS OR DISCOMFORT AT THIS TIME
[2017-09-08 11:14] VITALS: BP 102/52
--- NOTE | 2017-09-08 13:25 | NUR ---
BACK TO BED, PER NURSE. DENIES ANY NEEDS. C/O BEING TIRED. SR UP WITH CALL LIGHT IN REACH AND SR UP
[2017-09-08 16:18] VITALS: BP 98/54
--- NOTE | 2017-09-08 17:52 | NUR ---
LYING QUIETLY WITH EYES CLOSED, DENIES ANY NEEDS. CALL LIGHT N REACH. WILL MONITOR
[2017-09-08 20:00] VITALS: BP 96/56
[2017-09-09] VITALS: BP 91/48
[2017-09-09 04:00] VITALS: BP 105/64
--- NOTE | 2017-09-09 07:50 | NUR ---
RESP UL ON . IV PATENT. CT INTACT. WILL CONT. PLAN OF CARE.
[2017-09-09 08:00] VITALS: BP 92/47
--- NOTE | 2017-09-09 08:14 | NUR ---
ASSESSMENT DONE. DENIES NEEDS.
[2017-09-09 12:00] VITALS: BP 97/51
--- NOTE | 2017-09-09 13:41 | NUR ---
Nutrition Follow Up: Pt was asleep at the time of RD visit. Interview deferred. Pt is eating 43% meal avg on a regular diet. Wt loss since admit noted. +BM 09/08/17. Meds and labs reviewed. Rec continue current diet. RD following.
[2017-09-09 16:00] VITALS: BP 107/46
--- NOTE | 2017-09-09 17:28 | NUR ---
WITHOUT CHANGES OR DIATRESS NOTED AT THIS TIME. LAN SALGADO
[2017-09-09 19:00] VITALS: BP 106/53
--- NOTE | 2017-09-09 20:00 | NUR ---
PT RESTING IN BED. ALERT/ORIENTED. CURRENTLY WITH BREATHING TREATMENT IN PROGRESS. NS @ 75ML/HR INFUSING TO LFA. O2 @ 2L/NC WITH NONLABORED RESPIRATIONS. LEFT CHEST TUBE TO WATER SEAL. DRESSING INTACT. SEE SHIFT ASSESSMENT. CPOC.
--- NOTE | 2017-09-09 22:34 | NUR ---
BEDTIME MEDS GIVEN. NORCO X 2 TABS FOR PAIN CONTROL RELATED TO LEFT SIDE CHEST TUBE. PT NO LONGER HAS A WOOL SUPPLIER TO USE, HER ONLY PAIN MEDICATION IS NORCO. WILL MONITOR AND PROMOTE OPTIMAL COMFORT.
[2017-09-10] VITALS (7 sets, daily range): BP systolic 84–100; BP diastolic 43–53
--- NOTE | 2017-09-10 04:13 | NUR ---
RESTING IN BED. IVF NS @ 75ML/HR INFUSING. HAS USED BED URRUTIA SEVERAL TIMES. LEFT SIDE CHEST TUBE TO 20CM SUCTION. NO DISTRESS. CPOC. CALL LIGHT IN REACH.
[2017-09-10 04:22] LABS: BASOPHILS 0.2 % (0-2); EOSINOPHILS 1.5 % (0-7); HEMATOCRIT 25.3 % (36.0-48.0); HEMOGLOBIN 8.3 g/dL (12-16); IMMATURE GRANULOCYTES 0.3 % (0-5); MCH 30.7 pg (26.0-34.0); MCHC 32.8 g/dL (31.0-37.0); MCV 93.7 fL (80.0-100.0); MEAN PLATELET VOLUME 8.1 fL (7.4-10.4); MONOCYTES 9.7 % (2-11); NEUTROPHILS 69.3 % (40-80); PLATELET COUNT 334 10x3/uL (130-400); RDW 13.1 % (11.5-14.5); WBC 8.9 10x3/uL (4.8-10.8)
[2017-09-10 04:38] LABS: CALC OSMOLALITY 276 mosm/kg (275-300); CALCIUM 8.2 mg/dL (8.5-10.1); CARBON DIOXIDE 32.6 mmol/L (21.0-32.0); CHLORIDE - SERUM 103 mmol/L (98-107); CREATININE - SERUM 0.5 mg/dL (0.6-1.3); GLUCOSE 100 mg/dL (74-106); POTASSIUM - SERUM 3.9 mmol/L (3.5-5.1); SODIUM 140 mmol/L (136-145); UREA NITROGEN 8 mg/dL (7-18); eGFR NON AFRICAN AMERICAN > 90 mL/min (90-120)
--- NOTE | 2017-09-10 08:28 | NUR ---
RESP UL ON . LEFT CT INTACT. CALL LIGHT IN REACH. WILL CONT. PLAN OF CARE.
--- NOTE | 2017-09-10 08:55 | NUR ---
ASSESSMENT DONE. DENIES NEEDS.
--- NOTE | 2017-09-10 17:21 | NUR ---
WITHOUT CHANGES OR DISTRESS NOTED AT THIS TIME. DENIES NEEDS.
--- NOTE | 2017-09-10 20:05 | NUR ---
PT RESTING IN BED. ALERT/ORIENTED, BRIGHTER AFFECT THAN OTHER DAYS. READING A BOOK ON WILBER. SMILING WHICH IS A HUGE IMPROVEMENT ON PREVIOUS AFFECT. PT STATES MD TOLD HER THAT HER LUNG IS INFLATED AND HER LEFT CHEST TUBE TO WATER SEAL SHOULD BE ABLE TO COME OUT TOMORROW OR THE NEXT DAY. IVF NS @ 75ML/HR INFUSING TO LFA. O2 @2L/NC. SR PER TELEMETRY. CHEST TUBE TO LEFT SIDE WITH DRESSING C/D/I. ABOVE CHEST TUBE NEAR LEFT AXILLARY AREA PT HAS A SMALL INCISION WITH EUSEBIO FROM A PREVIOUS CHEST TUBE. PT STATES SHE GOT UP AND WALKED WITH PT TODAY BUT AFTERWARDS HAD TO TAKE A NORCO BECAUSE HER SIDE HURT. DISCUSSED PAIN CONTROL. WILL PROVIDED ADDITIONAL PAIN MEDS AT BEDTIME. SEE SHIFT ASSESSMENT. CPOC.
[2017-09-11 03:53] VITALS: BP 87/47
--- NOTE | 2017-09-11 04:47 | NUR ---
NOTED ORDER FOR STOOL FOR OCCULT BLOOD. UNABLE TO OBTAIN SPECIMEN DUE TO PT HAVING NO BM.
[2017-09-11 05:36] LABS: BASOPHILS 0.1 % (0-2); HEMATOCRIT 24.6 % (36.0-48.0); IMMATURE GRANULOCYTES 0.1 % (0-5); LYMPHOCYTES 20.7 % (15-50); MCH 30.8 pg (26.0-34.0); MCHC 32.5 g/dL (31.0-37.0); MCV 94.6 fL (80.0-100.0); MEAN PLATELET VOLUME 8.2 fL (7.4-10.4); MONOCYTES 8.1 % (2-11); PLATELET COUNT 323 10x3/uL (130-400); RDW 13.3 % (11.5-14.5); WBC 6.9 10x3/uL (4.8-10.8)
[2017-09-11 06:07] LABS: % SATURATION 7 % (15-55); IRON 13 ug/dl (35-150); TOTAL IRON BIND CAPACITY 173 ug/dl (260-445); UNSAT IRON BIND CAPACITY 160 ug/dl (150-375)
--- NOTE | 2017-09-11 07:44 | NUR ---
ASSESSMENT DONE. DENIES NEEDS.
[2017-09-11 08:00] VITALS: BP 91/53
--- NOTE | 2017-09-11 09:27 | NUR ---
RESTS IN BED WITHOUT NEEDS VOICED. CT INTACT. IV PATENT. RESP UL ON . WILL CONT. PLAN OF CARE.
[2017-09-11 12:00] VITALS: BP 109/52
--- NOTE | 2017-09-11 15:46 | NUR ---
SLEEPING IN BED. EASILY AROUSES TO VOICE. DENIES ANY NEEDS. SINUS RHTHYM 96bpm ON TELEMETRY. BED LOCKED AND LOW. CALL LIGHT IN REACH. TWO SIDERAILS UP.
[2017-09-11 16:00] VITALS: BP 87/48
--- NOTE | 2017-09-11 17:22 | NUR ---
ALERT AND ORIENTED X4. RESTING IN BED. CHEST TUBE DRAINING AT BEDSIDE. FREE FROM AIR LEAKS. CALL REGARDING HCT 24.6. ORDER TO TRANSFUSE 2 UNITS OF PRBC PER . TYPE AND CROSS ORDERED. CONTINUE PLAN OF CARE. BED LOCKED AND LOW. CALL LIGHT IN REACH.
--- NOTE | 2017-09-11 19:26 | NUR ---
RESUMED CARE OF PT, LYING IN BED RESPIRATIONS EVEN AND UNLABORED ON ROOM AIR. [address] ST ON TELEMETRY. LEFT FOREARM INFUSING NS @75. LEFT CHEST TUBE WATER SEALED. CALL LIGHT IN REACH. NO NEEDS AT THIS TIME, WILL CONTINUE TO MONITOR. SEE NURSE ASSESSMENT.
[2017-09-11 20:32] VITALS: BP 96/53
--- NOTE | 2017-09-11 21:26 | NUR ---
1ST UNIT OF PRBCS INITIATED. VSS, CALL LIGHT IN REACH. ASSISSTED OFF THE BED URRUTIA, 400CC OF CLEAR YELLOW URINE OUT. WILL CONTINUE TO MONITOR.
[2017-09-12 00:05] VITALS: BP 106/60
--- NOTE | 2017-09-12 00:45 | NUR ---
1ST UNIT OF PRBCS COMPLETE, VSS. WILL CONTINUE TO MONITOR.
--- NOTE | 2017-09-12 01:39 | NUR ---
2ND OF PRBC INITIATED, VSS WILL CONTINUE TO MONITOR. CALL LIGHT IN REACH.
--- NOTE | 2017-09-12 04:20 | NUR ---
2ND UNIT OF PRBCS COMPLETED, CALL LIGHT IN REACH. WILL CONTINUE TO MONITOR.
[2017-09-12 05:19] LABS: BASOPHILS 0.1 % (0-2); EOSINOPHILS 1.3 % (0-7); IMMATURE GRANULOCYTES 0.2 % (0-5); LYMPHOCYTES 19.3 % (15-50); MCH 31.4 pg (26.0-34.0); MCHC 34.6 g/dL (31.0-37.0); MEAN PLATELET VOLUME 8.1 fL (7.4-10.4); MONOCYTES 7.8 % (2-11); NEUTROPHILS 71.3 % (40-80); PLATELET COUNT 292 10x3/uL (130-400); WBC 8.2 10x3/uL (4.8-10.8)
[2017-09-12 05:21] VITALS: BP 116/69
[2017-09-12 05:23] LABS: HEMATOCRIT 31.8 % (36.0-48.0); MCV 90.9 fL (80.0-100.0)
--- NOTE | 2017-09-12 07:35 | NUR ---
ASSESSMENT COMPLETED. TELEMERTY SHOWS SR 94. LEFT FA IV WITH NS AT 100. CHEST TUBE TO LEFT LATERAL CHEST. UP WITH PT. DENIES ANY NEEDS. WILL MONITOR
[2017-09-12 08:23] VITALS: BP 111/68
--- NOTE | 2017-09-12 09:08 | NUR ---
RESTS IN BED WITH CALL LIGHT IN REACH. RESP UL ON . IV PATENT CT INTACT. WILL CONT. PLAN OF CARE.
--- NOTE | 2017-09-12 11:15 | NUR ---
CHEST TUBE CLAMPED PER DR VARGAS ORDER. XRAY ORDERED FOR 1515
--- NOTE | 2017-09-12 14:12 | NUR ---
LYING QUIELTY WITH EYES CLOSED. WILL MONITOR. SR UP WITH CALL LIGHT IN REACH
--- NOTE | 2017-09-12 15:51 | NUR ---
Nutrition Follow Up: Pt stated that her appetite is "pretty good" and she is feeling better. She requested that Ensure only be sent 1x/d. Pt is eating 78% meal avg on a regular diet. Wt stable. +BM 09/08/17. Meds and labs reviewed. Rec continue current diet. Will decrease Ensure to 1x/d per pt request. RD following.
[2017-09-12 16:23] VITALS: BP 122/79
--- NOTE | 2017-09-12 19:20 | NUR ---
PT RESTING IN BED. NS INFUSING TO LEFT FOREARM AT 30. O2 2.5L NC. PT DENIES ANY NEEDS OR ANY PAIN AT THIS TIME. PT DENIES ANY NEEDS. NO S/S OF DISTRESS. BED LOW CALL LIGHT IN REACH. WILL CPOC
[2017-09-12 20:00] VITALS: BP 132/72
--- NOTE | 2017-09-12 20:46 | NUR ---
PT ON BED URRUTIA. TOLD PT THAT WE SHOULD TRY WALKING TO THE TOILET NEXT TIME SHE NEEDS TO USE THE RESTROOM.PT AGREED. PT DENIES ANY PAIN AT THIS TIME. NO S/S OF DISTRESS. BED LOW AND CALL LIGHT IN REACH. WILL CPOC
[2017-09-13] VITALS: BP 120/69
--- NOTE | 2017-09-13 03:29 | NUR ---
PT VOID 800 OF ODOROUS CLOUDY YELLOW URINE. PT C/O URGENCY, PT CLEAN AND DRY. DENIES ANY NEEDS. NO S/S OF DISTRESS. WILL CPOC
[2017-09-13 04:00] VITALS: BP 121/71
--- NOTE | 2017-09-13 05:37 | NUR ---
PT RESTING IN BED,MOUTHBREATHING. PT RESPIRTATIONS EVEN AND UNLABORED. PT HAS O2 ON AT 2.5L. WITH HUMIDITY. PT HAS HAD HOB UP TO 35 ALL NIGHT. PT DENIES ANY NEEDS AT THIS TIME. NO S/S OF DISTRESS. WILL CPOC
--- NOTE | 2017-09-13 07:15 | NUR ---
ASSISTED OFF BEDPAN. LEFT POSTERIOR DRESSING TO CHEST SEEN, C/D/I. ABOVE THIS UNDER LEFT POSTERIOR BREAST AREA IS 4 INTACT EUSEBIO SEEN TO INCISION. DENIES ANY PAIN. ON 2.5 L PER NC. ON HEART MONITOR SHOWING ST, HR 105. ON EP WITH NO LABS ORDERED. WILL CONTINUE TO MONITOR.
[2017-09-13 08:02] VITALS: BP 121/69
--- NOTE | 2017-09-13 10:09 | NUR ---
PATIENT WALKED WITH THERAPY. IN CHAIR AT THIS TIME. BED LINENS CHANGED. FAMILY AT BEDSIDE.
--- NOTE | 2017-09-13 11:20 | NUR ---
PATIENT STILL IN CHAIR. WASH BASIN, WASH CLOTHS, AND TOWELS TO PATIENT FOR BATHING SELF. SPOUSE IN ROOM. I ASKED THAT PATIENT WAS HERSELF MUCH POSSIBLE AND FOR FAMILY TO LET US KNOW WHEN PATIENT READY FOR CLEAN GOWN. STATES TO UNDERSTANDING.
[2017-09-13 12:00] VITALS: BP 123/63
--- NOTE | 2017-09-13 13:24 | NUR ---
LIDOCAINE 1 % VIAL PULLED OVERRIDE FOR DR. HOWIE MILNER HIS NURSING MESSAGE ORDER.
--- NOTE | 2017-09-13 14:45 | NUR ---
RECEIVING UPDRAFT TREATMENT. ALL SUPPLIES PER DR DENISE PLACED ON COUNTER. FAMILY AT BEDSIDE.
[2017-09-13 16:00] VITALS: BP 123/75
--- NOTE | 2017-09-13 16:50 | NUR ---
Patient Name: MARSHALL SANCHES Encounter No: [id number] : 1950 Primary Insurance: [facility] Anticipated DC Date: Planned Disposition: Home WITH HOME HEALTH External Planned Provider: [facility] DCP follow-up note: CM RECEIVED CALL FROM JERI OF [facility] WHO REPORTS PT IS A PATIENT OF [facility] ON HOSPITAL HOLD; ABDULKADIR TO RESUME HOME HEALTH AT DISCHARGE. PT PLANS TO RETURN HOME AT DISCHARGE, IN AGREEMENT WITH RESUMPTION OF [facility]. FOR DISCHARGE, NOTIFY [facility] AT [phone], FAX DISCHARGE INFORMATION TO [place] AT [phone]. CM TO CONTINUE TO FOLLOW AND ASSIST NEEDED. Flakito Cardona, CASE MANAGEMENT
[2017-09-13 19:00] VITALS: BP 103/65
--- NOTE | 2017-09-13 19:20 | NUR ---
PT ASLEEP. RESPIRATIONS EVEN AND UNLABORED. MOUTHBREATHER. O2 2.5L NC, 30ML OF NS INFUSING TO LEFT FOREARM. BED SIDE REPORT RECEIVED. PT HAS NO S/S OF DISTRESS. BED LOW AND CALL LIGHT IN REACH. WILL CPOC
[2017-09-14] VITALS: BP 103/59
[2017-09-14 04:00] VITALS: BP 115/69
--- NOTE | 2017-09-14 05:13 | NUR ---
PT LAYING IN BED WATCHING TV. VOIDED 600CC OF CLOUDY, CONCENTRATED YELLOW URINE THAT IS MALODOROUS. PT PAD CHANGED AND PT CLEAN AND DRY. PT DENIES ANY NEEDS. NO S/S OF DISTRESS. WILL CPOC
--- NOTE | 2017-09-14 07:26 | NUR ---
AM ROUNDS- PT IN BED, WITH EYES CLOSED, AROUSES TO VOICE EASILY. RESP EVEN AND UNLABORED. LT FA INFUSING NS AT 30CC/HR. LT CHEST TUBE NOTED NOT CONNECTED TO SUCTION. PT DENIES ANY NEEDS AT THIS TIME. BED LOW AND WHEELS LOCKED, BEDSIDE RAILS X2, CALL LIGHT IN REACH, NAD NOTED, WILL CONTINUE TO MONITOR.
[2017-09-14 08:28] VITALS: BP 121/69
--- NOTE | 2017-09-14 09:16 | NUR ---
AM MEDS GIVEN AT THIS TIME, ALSO GAVE MOM PER PT REQUEST. PT IN BED, DENIES ANY NEEDS AT THIS TIME. CALL LIGHT IN REACH, NAD NOTED, WILL CONTINUE TO MONITOR.
--- NOTE | 2017-09-14 13:02 | NUR ---
PT UP TO CHAIR, DENIES NEEDS AT THIS TIME. CALL LIGHT IN REACH, NAD NOTED, WILL CONTINUE TO MONITOR.
--- NOTE | 2017-09-14 14:47 | NUR ---
HELPED PT TO AND OFF THE BEDPAN. PT ONLY URINATED, HAS NOT HAD BM. PT DENIES ANY OTHER NEEDS AT THIS TIME. CALL LIGHT IN REACH, NAD NOTED, WILL CONTINUE TO MONITOR.
--- NOTE | 2017-09-14 15:15 | NUR ---
POT ROOM SUPERVISOR NOTIFIED THIS NURSE OF TEMP OF 100.2. WILL PLACED WET WASHCLOTH TO FORHEAD AT THIS TIME, AND CHECK IT AGAIN IN ABOUT 30MIN.
[2017-09-14 15:59] VITALS: BP 107/72
--- NOTE | 2017-09-14 16:05 | NUR ---
RECHECKED TEMP NOW 99.8, WILL KEEP WASH CLOTH TO FOREHEAD AND CONTINUE TO MONITOR.
[2017-09-14 18:02] LABS: APPEARANCE HAZY (CLEAR); BILIRUBIN NEGATIVE (NEGATIVE); COLOR YELLOW (YELLOW); GLUCOSE NEGATIVE (NEGATIVE); KETONE NEGATIVE (NEGATIVE); NITRITE POSITIVE (NEGATIVE); PROTEIN TRACE mg/dL (NEGATIVE); SPECIFIC GRAVITY 1.005 (1.005-1.020); UROBILINOGEN NORMAL (NORMAL)
[2017-09-14 18:05] LABS: BACTERIA MODERATE /hpf (NONE SEEN); EPITHELIAL CELLS 0-5 /hpf (0-5)
[2017-09-14 19:00] VITALS: BP 117/68
--- NOTE | 2017-09-14 19:00 | NUR ---
RECEIVED REPORT AND ASSUMED PT CARE FROM DAY SHIFT RN @ THIS TIME.
[2017-09-15] VITALS: BP 116/71
[2017-09-15 04:03] VITALS: BP 128/73
[2017-09-15 06:10] LABS: BASOPHILS 0.1 % (0-2); EOSINOPHILS 1.1 % (0-7); HEMATOCRIT 37.5 % (36.0-48.0); HEMOGLOBIN 12.3 g/dL (12-16); IMMATURE GRANULOCYTES 0.4 % (0-5); MCH 29.7 pg (26.0-34.0); MCHC 32.8 g/dL (31.0-37.0); MCV 90.6 fL (80.0-100.0); MEAN PLATELET VOLUME 8.3 fL (7.4-10.4); MONOCYTES 5.9 % (2-11); NEUTROPHILS 79.5 % (40-80); RBC 4.14 10x6/uL (4.00-5.40); RDW 13.7 % (11.5-14.5)
[2017-09-15 06:13] LABS: PLATELET COUNT 401 10x3/uL (130-400)
[2017-09-15 06:28] LABS: CALC OSMOLALITY 271 mosm/kg (275-300); CALCIUM 8.8 mg/dL (8.5-10.1); CARBON DIOXIDE 29.9 mmol/L (21.0-32.0); CHLORIDE - SERUM 100 mmol/L (98-107); CREATININE - SERUM 0.5 mg/dL (0.6-1.3); GLUCOSE 115 mg/dL (74-106); SODIUM 136 mmol/L (136-145); UREA NITROGEN 9 mg/dL (7-18); eGFR NON AFRICAN AMERICAN > 90 mL/min (90-120)
--- NOTE | 2017-09-15 07:30 | NUR ---
REPORT RECEIVED. RR EVEN AND UNLABORED. PT DENIES NEEDS AT THIS TIME. CHEST TUBE DRESSING CITE CDI. PT IS TACHYCARDIC THIS MORNING. WILL CTM.
[2017-09-15 08:00] VITALS: BP 130/72
--- NOTE | 2017-09-15 11:23 | NUR ---
PT REPORTS FEELING VERY CONSTIPATED STILL, WILL GIVE PRN MILK OF MAG AND CTM.
[2017-09-15 12:00] VITALS: BP 117/63
--- NOTE | 2017-09-15 18:21 | NUR ---
PT RESTING QUILETY, RR EVEN AND UNLABORED. PT DENIES NEEDS AT THIS TIME. WILL GIVE REPORT ON PT CONDITION FOR THE DAY.
[2017-09-15 20:26] VITALS: BP 112/69
[2017-09-16] VITALS (7 sets, daily range): BP systolic 109–131; BP diastolic 58–77
[2017-09-16 05:32] LABS: BASOPHILS 0.1 % (0-2); EOSINOPHILS 0.9 % (0-7); HEMATOCRIT 37.7 % (36.0-48.0); HEMOGLOBIN 12.5 g/dL (12-16); IMMATURE GRANULOCYTES 0.5 % (0-5); LYMPHOCYTES 13.5 % (15-50); MCH 30.3 pg (26.0-34.0); MCHC 33.2 g/dL (31.0-37.0); MCV 91.3 fL (80.0-100.0); MEAN PLATELET VOLUME 8.2 fL (7.4-10.4); MONOCYTES 5.7 % (2-11); NEUTROPHILS 79.3 % (40-80); PLATELET COUNT 411 10x3/uL (130-400); RBC 4.13 10x6/uL (4.00-5.40); RDW 13.5 % (11.5-14.5)
[2017-09-16 05:40] LABS: CALC OSMOLALITY 266 mosm/kg (275-300); CALCIUM 8.7 mg/dL (8.5-10.1); CARBON DIOXIDE 28.1 mmol/L (21.0-32.0); CHLORIDE - SERUM 97 mmol/L (98-107); CREATININE - SERUM 0.5 mg/dL (0.6-1.3); GLUCOSE 126 mg/dL (74-106); POTASSIUM - SERUM 4.1 mmol/L (3.5-5.1); SODIUM 132 mmol/L (136-145); eGFR NON AFRICAN AMERICAN > 90 mL/min (90-120)
[2017-09-16 05:45] LABS: UREA NITROGEN 12 mg/dL (7-18)
--- NOTE | 2017-09-16 10:28 | NUR ---
RESTING QUIETLY IN BED. MONITOR SHOWS SR @ 95. CHEST TUBE DRAINING MINUTE AMOUNT. DRAINAGE CONTAINER ON FLOOR BELOW CHEST LEVEL.
--- NOTE | 2017-09-16 11:43 | CN ---
PATIENT NAME:MARSHALL CHICAS MEDICAL RECORD: [id number] : [birth year] LOCATION:. D.2124 ADMIT DATE: 08/21/17 ACCOUNT: [id number] CONSULTING PHYSICIAN: JAVIER MICHELLE MD REFERRING PHYSICIAN: HOLLIS DENISE MD DATE OF CONSULTATION: 08/22/2017 CONSULT REQUESTING PHYSICIAN: Hollis Denise MD REASON FOR CONSULTATION: Spontaneous left pneumothorax. HISTORY OF PRESENT ILLNESS: Ms. Chicas is a 67-year-old female who has a history of COPD and bullous emphysema. The patient had right-sided spontaneous pneumothorax a few years ago. She was admitted to [facility] [place] in [place]. According to the patient, now she has pain in the left side of her chest for the last 4 days. She has also worsening shortness of breath. The patient came into the hospital and she was found that she has a left pneumothorax. A chest tube was placed in and brought into the ER. Denies any fever or chills, no night sweats. REVIEW OF SYSTEMS: Mainly in the history of present illness. PAST MEDICAL HISTORY: 1. COPD. 2. Gastroesophageal reflux disease. 3. History of cerebrovascular accident. 4. Aortic valve stenosis. 5. History of spontaneous pneumothorax on the right side. PAST SURGICAL HISTORY: 1. She has a chest tube placed on the right side. 2. Cholecystectomy. 3. Hysterectomy. 4. Cataract surgery. 5. She has cardiac valve replacement, the patient is not sure. ALLERGIES: There are no known drug allergies. PRESENT MEDICATIONS: [employer] was reviewed. PERSONAL AND SOCIAL HISTORY: The patient is an ex-smoker. She is a nondrinker. FAMILY HISTORY: Noncontributory. PHYSICAL EXAMINATION: GENERAL: Now, the patient is lying comfortably. She is not in acute distress. VITAL SIGNS: The blood pressure is 145/86, pulse is 73, respirations 18, temperature is 97.9, SpO2 is 98% on 2 liters nasal cannula. HEENT: Conjunctivae are pink. Sclerae are not icteric. NECK: Neck is supple. No JVD. CHEST: The chest excursion is minimal on both sides. There is no wheeze. There are crackles at the left base. HEART: Rhythm regular. Normal sound. No murmur. ABDOMEN: Abdomen is soft. Bowel sounds present. No hepatosplenomegaly. RECTAL: Deferred. CONSULT REPORT [id number] MARSHALL CHICAS EXTREMITIES: No cyanosis, no clubbing. There is no pedal edema. SKIN: The skin is warm, normal turgor. CENTRAL NERVOUS SYSTEM: The patient is awake and alert. There are no obvious cranial nerve abnormalities. The gait was not tested. IMAGING: CT scan of the chest; there is bullous emphysema bilaterally. There is also left pneumothorax, but the chest tube is not properly positioned. OTHER LABORATORY DATA: CBC; WBC 14.6, hemoglobin 14.2, hematocrit 42.7, platelet count 268. Chemistry; sodium 143, potassium 4.5, BUN is 22, creatinine 0.8. IMPRESSION: 1. Left spontaneous pneumothorax. 2. Bullous emphysema. 3. Chronic obstructive pulmonary disease without exacerbation. 4. Gastroesophageal reflux disease and history of recurrent pneumothorax. RECOMMENDATIONS: 1. The patient's chest tube needed to be repositioned. 2. Albuterol and ipratropium nebulizer. 3. Brovana and budesonide nebulizer. 4. Supplemental oxygen is required. 5. We will start empiric Ancef 1 gram q.8 hourly. 6. Pain control. 7. Follow up labs and chest radiograph. 8. Check ejgqc-[id number] level. Dr. Denise, thank you for involving me in the care of Ms. Chicas. TRANSINT:[id number] Voice Confirmation ID: [id number] DOCUMENT ID: [id number] JAVIER MICHELLE MD at 1143 CC: [id number] DICTATION DATE: 08/22/17 1105 MECHANICAL ENGINEERING COOP: 08/22/17 1359 ADM IN [place] [id number]
--- NOTE | 2017-09-16 14:26 | NUR ---
DR. DENISE HERE TO REMOVE CHEST TUBE. PT TURNED ON RIGHT SIDE. DRESSING REMOVED WITH OLD DRAINAGE NOTED. AREA CLEANED WITH CHOLORPREP. DR. DENISE INJECTED LIDOCAINE FOR LOCAL INJECTED. CHEST TUBE REMOVED AND PRESSURE DRESSING OF VASELINE GAUZE AND 4X4S PLACED SIMUTINEOUSLY. PRESSURE HELD FOR 3 MINS. PURSE STRING SUTURE PULLED TOGETHER. DRESSING OF ABOVE TAPED. ORDER RECEIEVED TO REMOVE EUSEBIO FROM 2 SITES. SITES CLEANED WITH CHLORPREP. 3 EUSEBIO REMOVED AND BANDAID PLACED. 4 EUSEBIO REMOVED FROM OTHER SITE AND BAND AID PLACED. ORDER PUT IN FOR CHEST XRAY. PT RADHA WELL. CHEST TUBE DISPOSED OF IN RED BAGS X2. 10CC OF OLD BROWN DRAINAGE NOTED IN CONTAINER.
[2017-09-17 04:32] VITALS: BP 116/67
--- NOTE | 2017-09-17 04:39 | NUR ---
PATIENT IS A DAILY WEIGHT, BED SCALE IS BROKEN AND PATIENT REFUSES TO USE A STAND UP SCALE. CALL LIGHT IN REACH.
--- NOTE | 2017-09-17 04:42 | NUR ---
PT LYING IN BED, AWAKE, ALERT, DENIES ANY NEEDS. PT STATES SHE IS FEELING BETTER SINCE HAVING HER CHEST TUBE PULLED. CONTINUE TO MONITOR PT CLOSELY. BED LOW, CALL LIGHT IN REACH, SIDE RAILS X 2, HOB 30 DEGREES.
[2017-09-17 08:13] VITALS: BP 120/696
--- NOTE | 2017-09-17 09:52 | NUR ---
TOOK 02 OFF PT PLACED ON SIDE OF BED SPO2 DROPPED TO 86% AFTER 5 MIN PLACED PT BACK ON 3 LPM SPO2 TO 94%
--- NOTE | 2017-09-17 10:02 | NUR ---
TELEMETRY SR. GUZMAN FOR X-RAY BY W/CEsperanza
[2017-09-17 12:14] VITALS: BP 119/71
[2017-09-17] MEDS ORDERED: HYDROCODON-ACE1 EAC7 PO (14:50)
--- NOTE | 2017-09-17 14:58 | NUR ---
Patient Name: MARSHALL SANCHES Encounter No: [id number] : 1950 Primary Insurance: [facility] Anticipated DC Date: Planned Disposition: Home WITH HOME HEALTH External Planned Provider: [facility] DCP follow-up note: CM RECEIVED ORDER FOR HOME OXYGEN, MET WITH PT AND FAMILY IN ROOM. PT REPORTS NO PREFERENCE ON MEDICAL EQUIPMENT PROVIDER, IMPORTANT MESSAGE FROM MEDICARE PROVIDED AND EXPLAINED. CM PAGED AND SPOKE TO DR. MICHELLE WHO WILL SIGN ORDERS FOR OXYGEN. CM CALLED [facility], , PROVIDED REFERRAL TO [facility] WHO WILL ARRANGE PORTABLE OXYGEN DELIVERY TO THE HOSPITAL AND HOME DELIVERY OF [facility]. CM RECEIVED DISCHARGE ORDER, CM CALLED [facility], , SPOKE TO XOCHILT AND NOTIFIED OF DISCHARGE AND PT WAS PLACED ON SCHEDULE FOR RESUMPTION OF HOME HEALTH; CM FAXED DISCHARGE INFORMATION TO [facility] AT [phone]. PT NOTIFIED, NO FURTHER NEEDS IDENTIFIED. DAVE PRESLEY, CASE MANAGEMENT
--- NOTE | 2017-09-17 15:29 | NUR ---
FRANKG REMOVED TO CT SITE. IV AND TELEMETRY DCD. DC PLANS GIVEN. UNDERSTANDING VOICED.
--- NOTE | 2017-09-17 16:12 | NUR ---
ESCORTED TO CAR BY W/C.
--- NOTE | 2017-10-29 15:43 | DS ---
PATIENT:MARSHALL SANCHES :52 MEDICAL RECORD: [id number] DISCHARGE SUMMARY ADMISSION DATE: 08/21/17 DISCHARGE DATE: 09/17/17 PRINCIPAL DIAGNOSES: Spontaneous pneumothorax, left with prolonged air leak. OTHER DIAGNOSES: Include: 1. Advanced emphysema. 2. Chronic obstructive pulmonary disease. 3. History of cerebrovascular accident times 2. 4. History of sinus tachycardia. 5. History of right spontaneous pneumothoraces. 6. Gastroesophageal reflux. 7. Hypothyroidism, chronic, on replacement therapy. 8. Arthritis. 9. Aortic valve repair. 10. History of hysterectomy. 11. History of cholecystectomy. 12. History of CABG. 13. Hypomagnesemia. 14. Hypophosphatemia. 15. Urinary tract infection. 16. Anemia, acute, due to blood loss. PROCEDURE: Left thoracoscopy with bleb resection and also cautery of blebs with the argon plasma wood heel flap trimmer and talc pleurodesis. HOSPITAL COURSE: The patient underwent the above operative procedure. Postoperatively, her pain was controlled. The lung that was resected revealed pseudonodular hyalinized interstitial fibrosis with moderate chronic inflammation and focal ossification with adjacent collapsed and emphysematous lung parenchyma. The patient had a prolonged air leak. The air leak resolved. The left chest tube was removed. The patient was dismissed home. I will see her in my office in 2-3 weeks. The patient was instructed that she could develop a spontaneous pneumothorax again either on the left side or the right side. She is not to be farther than an hour away from reliable medical care. She is not to scuba dive. She is not ascend to great heights. TRANSINT:[id number] Voice Confirmation ID: [id number] DOCUMENT ID: [id number] SALINAS DENISE MD at 1543 CC: JAVIER MICHELLE MD [id number] DICTATION DATE: 10/15/17 0952 ROD PULLER: 10/15/17 1240 DIS IN 09/17/17 [id number] [place] [address]
== END 2017-09-17 16:12 | disposition home health service (06) | DRG 163 ==
LOC: D.M2 20:40 → D.ICU 20:40 → D.M2 08-23 11:58 → D.ICU 08-31 10:23 → D.M2 09-03 10:19 → D.SDCHOLD 09-03 18:12 → D.M2 09-03 18:14
PROVIDERS: Family Medicine; Internal Medicine Pulmonary Disease; ADMIT Surgery
PROC: 0W9B30Z Drainage of Left Pleural Cavity with Drainage Device, Percutaneous Approach (ICD-10-PCS; principal; 2017-08-22 12:00)
PROC: 0BNL4ZZ Release Left Lung, Percutaneous Endoscopic Approach (ICD-10-PCS; 2017-08-31)
PROC: 3E0L3GC Introduction of Other Therapeutic Substance into Pleural Cavity, Percutaneous Approach (ICD-10-PCS; 2017-08-31)
PROC: 0BBL4ZZ Excision of Left Lung, Percutaneous Endoscopic Approach (ICD-10-PCS; 2017-08-31)
PROC: 0W9B40Z Drainage of Left Pleural Cavity with Drainage Device, Percutaneous Endoscopic Approach (ICD-10-PCS; 2017-08-31)
PROC: 0B5 Respiratory System, Destruction (ICD-10-PCS; 2017-08-31)
PROC: 3E0L3GC Introduction of Other Therapeutic Substance into Pleural Cavity, Percutaneous Approach (ICD-10-PCS; 2017-08-31)
DX: J93.83 Other pneumothorax (principal); J86.0 Pyothorax with fistula; K21.9 Gastro-esophageal reflux disease without esophagitis; J43.9 Emphysema, unspecified; J95.812 Postprocedural air leak; E78.5 Hyperlipidemia, unspecified; E03.9 Hypothyroidism, unspecified; I10 Essential (primary) hypertension; R00.0 Tachycardia, unspecified; K59.00 Constipation, unspecified; Z95.2 Presence of prosthetic heart valve; Z86.73 Personal history of transient ischemic attack (TIA), and cerebral infarction without residual deficits; Z87.891 Personal history of nicotine dependence; D50.9 Iron deficiency anemia, unspecified

== ENCOUNTER 2017-09-19 12:44 | Observation (INO) | payer MEDICARE ==
[~2017-09-19 12:44] MED LIST: BAYER CHEWABLE81 MG PO; BENADRYL25 MG PO; COLACE100 MG PO; DOXYCYCLINE HY100 M2 PO; HYDROCODON-ACE1 EAC7 PO; LOVASTATIN20 MG PO; PREDNISONE20 MG PO; PROAIR HFA8.5 GM INH; SPIRIVA18 MCG INH; SYMBICORT 16010.2 GM INH; SYNTHROID75 MCG PO; TOPROL XL50 MG PO; [UNRECOGNIZED DRUG - OTHER] PO
[2017-09-19 13:34] LABS: BASOPHILS 0.4 % (0-2); EOSINOPHILS 0.9 % (0-7); HEMATOCRIT 40.8 % (36.0-48.0); HEMOGLOBIN 13.5 g/dL (12-16); IMMATURE GRANULOCYTES 0.4 % (0-5); LYMPHOCYTES 22.6 % (15-50); MCH 30.2 pg (26.0-34.0); MCHC 33.1 g/dL (31.0-37.0); MCV 91.3 fL (80.0-100.0); MEAN PLATELET VOLUME 8.2 fL (7.4-10.4); MONOCYTES 7.3 % (2-11); NEUTROPHILS 68.4 % (40-80); PLATELET COUNT 405 10x3/uL (130-400); RBC 4.47 10x6/uL (4.00-5.40); RDW 13.3 % (11.5-14.5); WBC 9.5 10x3/uL (4.8-10.8)
[2017-09-19 13:56] LABS: ALBUMIN 2.6 g/dL (3.4-5.0); ALKALINE PHOSPHATASE 130 U/L (46-116); ALT (SGPT) 24 U/L (10-68); CALC OSMOLALITY 273 mosm/kg (275-300); CALCIUM 9.3 mg/dL (8.5-10.1); CARBON DIOXIDE 31.9 mmol/L (21.0-32.0); CHLORIDE - SERUM 98 mmol/L (98-107); CREATININE - SERUM 0.6 mg/dL (0.6-1.3); GLUCOSE 104 mg/dL (74-106); POTASSIUM - SERUM 4.2 mmol/L (3.5-5.1); PROTEIN - SERUM 7.5 g/dL (6.4-8.2); SODIUM 137 mmol/L (136-145); UREA NITROGEN 13 mg/dL (7-18); eGFR NON AFRICAN AMERICAN > 90 mL/min (90-120)
[2017-09-19 14:28] LABS: APPEARANCE CLEAR (CLEAR); BILIRUBIN NEGATIVE (NEGATIVE); COLOR YELLOW (YELLOW); GLUCOSE NEGATIVE (NEGATIVE); KETONE NEGATIVE (NEGATIVE); NITRITE NEGATIVE (NEGATIVE); PROTEIN TRACE mg/dL (NEGATIVE); UROBILINOGEN NORMAL (NORMAL)
[2017-09-19 14:30] LABS: RED CELLS - URINE 25-50 /hpf (0-5)
[2017-09-19 14:31] LABS: AMORPHOUS SEDIMENT <1+ /lpf (NONE SEEN); BACTERIA FEW /hpf (NONE SEEN)
[2017-09-19 14:40] LABS: MAGNESIUM - SERUM 2.1 mg/dL (1.8-2.4); THYROID STIMULATING HORMONE 7.83 uIU/mL (0.36-3.74)
[2017-09-19 18:26] VITALS: BP 111/53; BMI 16.1
[2017-09-19 20:00] VITALS: BP 95/55
--- NOTE | 2017-09-19 20:30 | NUR ---
ASSESSMENT COMPLETED AT THIS TIME PER FLOWSHEET. PT SLOWLY DRINKING ON BOWEL PREP. STATES "THIS STUFF IS HARD TO GET DOWN". STATES PAIN IN UPPER ABDOMEN, REFUSES PAIN MEDICATION AT THIS TIME. IV RIGHT AC PATENT WITH D5NS @50. 3L O2 VIA NC, STATES SHE WEARS OXYGEN AT HOME. BED ALARM ON, COMMODE AT BEDSIDE, CALL LIGHT IN REACH. WILL CONTINUE TO MONITOR.
[2017-09-20 04:00] VITALS: BP 99/62
--- NOTE | 2017-09-20 07:15 | NUR ---
PT AWOKENED AT THIS TIME, GOLYTELY IS OVER HALF FULL. PROVIDED PT WITH 20 OUNCE CUP OF GOLYTELY AND INSTRUCTED PT TO CONTINUE TO DRINK MIXTURE. PT VERBALIZED UNDERSTANDING. ASSESSMENT PERFOMRED PER FLOWSHEET. CALL LIGHT IN REACH, WILL CONTINUE WITH PLAN OF CARE.
[2017-09-20 08:18] VITALS: BP 102/60
--- NOTE | 2017-09-20 08:44 | NUR ---
SCHEDULED MEDICATIONS ADMINISTERED AT THIS TIME WITHOUT DIFFICULTY. ENCOURAGED PT TO DRINK GOLYTELY TO ASSIST WITH BOWELS.
--- NOTE | 2017-09-20 10:15 | NUR ---
TAKEN FOR GASTROGRAFIN ENEMA AT THIS TIME.
--- NOTE | 2017-09-20 11:00 | NUR ---
BACK TO ROOM 2208 FROM GASTROGRAFIN ENEMA AT THIS TIME. ON CUSHION WITH SMALL AMOUNT OF BROWN LIQUID FROM RECTUM. TIMBO CARE PROVIDED AND CASS'S APPLIED TO BUTTOCK DUE TO EXCORIATION.
[2017-09-20 12:55] VITALS: BMI 16.0
--- NOTE | 2017-09-20 14:23 | NUR ---
DIGITAL EXAMINATION REVEALD THAT IMPACTION HAS SOFTENED UP, BUT IS STILL IN THE SHAPE OF A BALL AND UNABLE TO REMOVE DIGITALLY.
--- NOTE | 2017-09-20 17:25 | NUR ---
DISCHARGE PAPERWORK REVIEWED WITH PT AND IV TO RIGHT FOREARM D/C WITH CATH TIP INTACT.
[2017-09-20 17:33] VITALS: BP 106/61
--- NOTE | 2017-10-15 14:51 | DS ---
PATIENT:MARSHALL SANCHES :[birth year] MEDICAL RECORD: [id number] DISCHARGE SUMMARY ADMISSION DATE: 09/19/17 DISCHARGE DATE: 09/20/17 DATE OF ADMISSION: 09/19/2017 DATE OF DISCHARGE: 09/20/2017 ADMISSION DIAGNOSIS: Fecal impaction. DISCHARGE DIAGNOSIS: Fecal impaction. PROCEDURE: 1. Gastrografin enema. 2. Digital disimpaction. CONSULTATIONS: None. REPORT OF HOSPITALIZATION: The patient was admitted to the hospital with abdominal pain and x-ray concerning for obstruction with noted fecal impaction. We tried to give the patient GoLYTELY initially, but she did not take it very well. The next day, she had a Gastrografin enema, which showed a large amount of stool in the rectum. Eventually, I just performed a digital disimpaction of the thecal stool fecal ball and at this point she began having fecal output and she was discharged home at that time. DISCHARGE INSTRUCTIONS: None. RESTRICTIONS: None. DISCHARGE MEDICATIONS: Resume home medications and followup is as needed. TRANSINT:[id number] Voice Confirmation ID: [id number] DOCUMENT ID: [id number] RHETT SIMMS MD at 1451 CC: [id number] DICTATION DATE: 10/08/17 1154 ASSOCIATE SOFTWARE DEVELOPER: 10/08/17 1333 DIS IN 09/20/[address] [address]
== END 2017-09-20 17:55 | disposition home or self-care (01) ==
LOC: D.ER 12:44 → D.MS 14:07 → OBSVTIME 14:43 → D.MS 09-20 17:55
PROVIDERS: Emergency Medicine; Nurse Practitioner Family; ADMIT Surgery
DX: K56.41 Fecal impaction (principal); J44.9 Chronic obstructive pulmonary disease, unspecified